=== PATIENT | male | born 1955 | race Caucasian/White ===

== ENCOUNTER 2023-01-26 20:41 | Inpatient (IN) | payer MEDICARE, OTHER ==
[2023-01-26 21:53] LABS: Anisocytosis Slight; Basophils % (A) 0 %; Eosinophils # (A) 0.1 k/uL (0-0.7); Eosinophils % (A) 1 %; HCT 52.3 % (39.0-53.0); HGB 16.8 gm/dL (13.0-17.5); Hypochromasia Moderate; Lymphocytes # (A) 1.8 k/uL (1.0-4.8); Lymphocytes % (A) 21 %; MCH 29.1 pg (25.0-35.0); MCHC 32.1 g/dL (31.0-37.0); MCV 90.6 fL (80.0-100.0); Mean Platelet Volume 7.3; Monocytes # (A) 0.3 k/uL (0-1.0); Monocytes % (A) 4 %; Neutrophils # (A) 5.9 k/uL (1.3-7.7); Neutrophils % (A) 71 %; Platelet Count 215 k/uL (150-450); RBC 5.78 m/uL (4.30-5.90); RDW 16.1 % (11.5-15.5); WBC 8.3 k/uL (3.8-10.6)
[2023-01-26 21:57] LABS: ALT 35 U/L (4-49); AST 37 U/L (17-59); African American GFR (CKD) 87 (>60 ml/min/1.73 sqM); Albumin 3.6 g/dL (3.5-5.0); Alkaline Phosphatase 144 U/L (38-126); Anion Gap 11 mmol/L; Blood Urea Nitrogen 19 mg/dL (9-20); Calcium 8.9 mg/dL (8.4-10.2); Carbon Dioxide 28 mmol/L (22-30); Chloride 101 mmol/L (98-107); Glucose 105 mg/dL (74-99); Non-African American GFR(CKD) 75 (>60 ml/min/1.73 sqM); Sodium 140 mmol/L (137-145)
--- NOTE | 2023-01-26 22:20 | ED ---
SOB HPI - General Chief Complaint: Shortness of Breath Stated Complaint: Leg Swelling, Pain and numbness Time Seen by Provider: 01/26/23 21:58 Source: patient Mode of arrival: wheelchair - History of Present Illness Initial Comments: Patient is a 67-year-old male presenting with chief complaint of shortness of breath and swelling to the bilateral lower extremities. States that this has been ongoing for several weeks. Patient states that he has been feeling increasingly short of breath, shortness of breath is worse with laying flat or exertion. Denies chest pain. Admits to cough. No fevers or chills. No nausea, vomiting, abdominal pain. - Related Data Home Medications Medication Instructions Recorded Confirmed No Known Home Medications 08/08/15 08/08/15 Allergies Allergy/AdvReac Type Severity Reaction Status Date / Time No Known Allergies Allergy Verified 01/26/23 21:01 Review of Systems ROS Statement: Those systems with pertinent positive or pertinent negative responses have been documented in the HPI. ROS Other: All systems not noted in ROS Statement are negative. Past Medical History Past Medical History: COPD, Hypertension, Myocardial Infarction ([place]) History of Any Multi-Drug Resistant Organisms: None Reported Past Surgical History: Appendectomy Past Psychological History: No Psychological Hx Reported Smoking Status: Current every day smoker Past Alcohol Use History: None Reported Past Drug Use History: None Reported General Exam Limitations: no limitations General appearance: alert, in no apparent distress Head exam: Present: atraumatic, normocephalic, normal inspection Eye exam: Present: normal appearance, EOMI. Absent: scleral icterus, periorbital swelling Neck exam: Present: normal inspection, full ROM Respiratory exam: Present: normal lung sounds bilaterally. Absent: respiratory distress, wheezes, rales, rhonchi, stridor Cardiovascular Exam: Present: regular rate, normal rhythm, normal heart sounds. Absent: systolic murmur, diastolic murmur, rubs, gallop, clicks Extremities exam: Present: pedal edema Neurological exam: Present: alert, oriented X3, CN II-XII intact Psychiatric exam: Present: normal affect, normal mood Skin exam: Present: warm, dry, intact, normal color. Absent: rash Course Vital Signs 01/26/23 01/26/23 20:55 23:10 Temperature 97 F L Pulse Rate 100 92 Respiratory 18 18 Rate Blood Pressure 134/94 152/111 O2 Sat by Pulse 95 93 L Oximetry Medical Decision Making - Medical Decision Making Was pt. sent in by a medical professional or institution (, YUE, ART EDUCATION PROFESSOR, urgent care, hospital, or group home...) When possible be specific @ -No Did you speak to anyone other than the patient for history (EMS, parent, family, police, friend...)? What history was obtained from this source @ -No Did you review nursing and triage notes (agree or disagree)? Why? @ -I reviewed and agree with nursing and triage notes Were old charts reviewed (outside hosp., previous admission, EMS record, old EKG, old radiological studies, urgent care reports/EKG's, group home records)? Report findings @ -No old charts were reviewed Differential Diagnosis (chest pain, altered mental status, abdominal pain women, abdominal pain men, vaginal bleeding, weakness, fever, dyspnea, syncope, headache, dizziness, GI bleed, back pain, seizure, CVA, palpatations, mental health, musculoskeletal)? @ -MDM Differential Dyspnea: Coronary syndrome, arrhythmia, tamponade, asthma, COPD, pulmonary embolism, pneumonia, pneumothorax, pulmonary effusion, anaphylaxis, diabetic ketoacidosis, flailed chest, pulmonary contusion, diaphragmatic rupture, anemia, neuromuscular this is not meant to be an all-inclusive list. EKG interpreted by me (3pts min.). @ -As above X-rays interpreted by me (1pt min.). @ -Chest x-ray shows basilar infiltrates with small pleural effusions. CT interpreted by me (1pt min.). @ -None done U/S interpreted by me (1pt. min.). @ -None done What testing was considered but not performed or refused? (CT, X-rays, U/S, labs)? Why? @ -None What meds were considered but not given or refused? Why? @ -None Did you discuss the management of the patient with other professionals (professionals i.e. YUE Muhammad, ART EDUCATION PROFESSOR, lab, RT, psych nurse, rn social services, licensing and registration director, teacher, medical scientific officer, case sealer)? Give summary @ -I spoke with Dr. Pereira who accepted admission Was smoking cessation discussed for >3mins.? @ -No Was critical care preformed (if so, how long)? @ -No Were there social determinants of health that impacted care today? How? (Homelessness, low income, unemployed, alcoholism, drug addiction, transportation, low edu. Level, literacy, decrease access to med. care, intermediate, rehab)? @ -No Was there de-escalation of care discussed even if they declined (Discuss DNR or withdrawal of care, Hospice)? DNR status @ -No What co-morbidities impacted this encounter? (DM, HTN, Smoking, COPD, CAD, Cancer, CVA, ARF, Chemo, Hep., AIDS, mental health diagnosis, sleep apnea, morbid obesity)? @ -COPD, hypertension Was patient admitted / discharged? Hospital course, mention meds given and route, prescriptions, significant lab abnormalities, going to OR and other pertinent info. @ -Admitted. 67-year-old male presenting with chief complaint of progressive dyspnea on lower extremity edema. Lab work shows BNP 14,200 and troponin 0.036. Patient is having no chest pain, troponin elevation likely secondary to CHF exacerbation. Chest x-ray shows small pleural effusions, given the patient's clinical presentation without fever or elevated white count pneumonia is unlikely. He will be treated with Lasix. I spoke with Dr. Pereira who accepted admission of this patient and cardiology is placed on consult. Patient is agreeable with this plan. I discussed this case with my attending Dr. Blackmon Undiagnosed new problem with uncertain prognosis? @ -No Drug Therapy requiring intensive monitoring for toxicity (Heparin, Nitro, Insulin, Cardizem)? @ -No Were any procedures done? @ -No Diagnosis/symptom? @ -New onset CHF Acute, or Chronic, or Acute on Chronic? @ -Acute Uncomplicated (without systemic symptoms) or Complicated (systemic symptoms)? @ -Complicated Side effects of treatment? @ -No Exacerbation, Progression, or Severe Exacerbation? @ -No Poses a threat to life or bodily function? How? (Chest pain, [place], AL, pneumonia, PE, COPD, DKA, ARF, appy, cholecystitis, CVA, Diverticulitis, Homicidal, Suicidal, threat to staff... and all critical care pts) @ -Yes - Lab Data Result diagrams: 01/26/23 21:35 01/26/23 21:35 Lab Results 01/26/23 01/26/23 01/26/23 Range/Units 21:35 21:35 21:35 WBC 8.3 (3.8-10.6) k/uL RBC 5.78 (4.30-5.90) m/uL Hgb 16.8 (13.0-17.5) gm/dL Hct 52.3 (39.0-53.0) % MCV 90.6 (80.0-100.0) fL MCH 29.1 (25.0-35.0) pg MCHC 32.1 (31.0-37.0) g/dL RDW 16.1 H (11.5-15.5) % Plt Count 215 (150-450) k/uL MPV 7.3 Neutrophils % 71 % Lymphocytes % 21 % Monocytes % 4 % Eosinophils % 1 % Basophils % 0 % Neutrophils # 5.9 (1.3-7.7) k/uL Lymphocytes # 1.8 (1.0-4.8) k/uL Monocytes # 0.3 (0-1.0) k/uL Eosinophils # 0.1 (0-0.7) k/uL Basophils # 0.0 (0-0.2) k/uL Hypochromasia Moderate Anisocytosis Slight Sodium 140 (137-145) mmol/L Potassium 5.0 (3.5-5.1) mmol/L Chloride 101 (98-107) mmol/L Carbon Dioxide 28 (22-30) mmol/L Anion Gap 11 mmol/L BUN 19 (9-20) mg/dL Creatinine 1.02 (0.66-1.25) mg/dL Est GFR (CKD-EPI)AfAm 87 (>60 ml/min/1.73 sqM) Est GFR (CKD-EPI)NonAf 75 (>60 ml/min/1.73 sqM) Glucose 105 H (74-99) mg/dL Lactic Ac Sepsis Rflx Plasma Lactic Acid Elia 4.9 H* (0.7-2.0) mmol/L Calcium 8.9 (8.4-10.2) mg/dL Total Bilirubin 1.0 (0.2-1.3) mg/dL AST 37 (17-59) U/L ALT 35 (4-49) U/L Alkaline Phosphatase 144 H (38-126) U/L Troponin I (0.000-0.034) ng/mL NT-Pro-B Natriuret Pep pg/mL Total Protein 7.0 (6.3-8.2) g/dL Albumin 3.6 (3.5-5.0) g/dL 01/26/23 01/26/23 01/26/23 Range/Units 21:35 21:35 22:05 WBC (3.8-10.6) k/uL RBC (4.30-5.90) m/uL Hgb (13.0-17.5) gm/dL Hct (39.0-53.0) % MCV (80.0-100.0) fL MCH (25.0-35.0) pg MCHC (31.0-37.0) g/dL RDW (11.5-15.5) % Plt Count (150-450) k/uL MPV Neutrophils % % Lymphocytes % % Monocytes % % Eosinophils % % Basophils % % Neutrophils # (1.3-7.7) k/uL Lymphocytes # (1.0-4.8) k/uL Monocytes # (0-1.0) k/uL Eosinophils # (0-0.7) k/uL Basophils # (0-0.2) k/uL Hypochromasia Anisocytosis Sodium (137-145) mmol/L Potassium (3.5-5.1) mmol/L Chloride (98-107) mmol/L Carbon Dioxide (22-30) mmol/L Anion Gap mmol/L BUN (9-20) mg/dL Creatinine (0.66-1.25) mg/dL Est GFR (CKD-EPI)AfAm (>60 ml/min/1.73 sqM) Est GFR (CKD-EPI)NonAf (>60 ml/min/1.73 sqM) Glucose (74-99) mg/dL Lactic Ac Sepsis Rflx Y Plasma Lactic Acid Elia (0.7-2.0) mmol/L Calcium (8.4-10.2) mg/dL Total Bilirubin (0.2-1.3) mg/dL AST (17-59) U/L ALT (4-49) U/L Alkaline Phosphatase (38-126) U/L Troponin I 0.036 H* (0.000-0.034) ng/mL NT-Pro-B Natriuret Pep 84847 pg/mL Total Protein (6.3-8.2) g/dL Albumin (3.5-5.0) g/dL - EKG Data -: EKG Interpreted by Me EKG Comments: Sinus tachycardia ventricular rate 100. W[place] interval 146. QRS 89. QT 349. QTC 406. No acute changes when compared to previous EKG. Disposition Clinical Impression: Congestive heart failure Disposition: ADMITTED IP TO THIS HOSP Condition: Fair Time of Disposition: 23:51
[2023-01-26] MEDS ORDERED: NICOTINE 14MG/24HR PATCH TRANSDERM STA (22:21)
--- NOTE | 2023-01-26 22:29 | XR ---
EXAMINATION TYPE: XR chest 2V DATE OF EXAM: 01/26/2023 COMPARISON: None INDICATION: Short of breath TECHNIQUE: Frontal and lateral views of the chest are obtained. FINDINGS: The heart size is normal. The pulmonary vasculature is normal. Small left pleural effusion is present. Minimal right pleural effusion is present. Bibasilar infiltra gregoria are present. Correlate for atelectasis or pneumonia.. There is some flattening of the diaphragms with increased AP diameter. Correlate for COPD. IMPRESSION: 1. Basilar infiltrates with small pleural effusions. Correlate for atelectasis or pneumonia. Follow-u p is recommended.
[2023-01-26] MEDS ORDERED: FUROSEMIDE 10 MG/ML 4 ML VIAL IV STA (23:27)
[2023-01-26] MEDS ORDERED: NALOXONE 0.4 MG/ML 1 ML VIAL IV PRN (23:49)
[2023-01-26] MEDS ORDERED: ACETAMINOPHEN TAB 325 MG TAB PO PRN (23:49)
[2023-01-27] MEDS ORDERED: cloNIDine HCL 0.1 MG TAB PO STA (02:10)
[2023-01-27] MEDS: FUROSEMIDE 10 MG/ML 4 ML VIAL IV SCH ×2 (09:18→21:16)
[2023-01-27] MEDS: carvediloL 6.25 MG TAB PO SCH ×2 (09:19→17:12)
--- NOTE | 2023-01-27 10:23 | P.CRDCN ---
History of Present Illness Consult date: 01/27/23 Consult reason: congestive heart failure History of present illness: History of present illness: This is a 67-year-old male does not follow with a molecular modeler but has past medical history of myocardial infarction 8 years ago and is not on any cardiac medications. Patient states he developed increasing shortness of breath that became progressively worse with weight gain and lower extremity edema going on for the last couple of weeks. He denies having any chest pain, no lightheadedness or dizziness, no loss of consciousness. He is an active smoker. Patient is seen today in the emergency center waiting for a bed on the cardiac stepdown unit. His initial blood pressure was 152/111 EKG sinus rhythm with low voltage Chest x-ray: Basilar infiltrates with small pleural effusions. Correlate for atelectasis or pneumonia. CBC is unremarkable. Electrolytes normal, creatinine 1.02. Blood sugar 105, lactic acid 4.9 and repeat 1.9. Alkaline phosphatase 144 that was liver function tests are normal. Troponin 0.036. ProBNP 14,200. Home cardiac medications: None Review Of Systems: At the time of my evaluation: Constitutional: No fever, no chills. No weakness, fatigue or lethargy. EENT: No headache. No dizziness. Lungs: Reports shortness of breath, cough, no sputum production. No wheezing. Reports dyspnea on exertion Cardiovascular: No chest pain, reports lower extremity edema. No palpitations. No paroxysmal nocturnal dyspnea. No orthopnea. No lightheadedness or dizziness. No syncopal episodes. Abdominal: No abdominal pain. No nausea, vomiting. No diarrhea. Musculoskeletal: No myalgias. No muscle weakness, no frequent falls. Integumentary: No wounds. No rash. No unusual bruising. Neurologic: No aphasia. No facial droop. No change in mentation. Physical examination: Gen: This is a 67-year-old male. He is resting in a year structure appears comfortable and in no acute distress. VS: reviewed blood pressure 158/88, heart rate in the 90s, pulse ox 93% on 3 L, afebrile. HEENT: Head is atraumatic, normocephalic. Pupils equal, round. Sclerae is anicteric. NECK: Supple. No JVD. . LUNGS: Expiratory wheeze. No intercostal retractions. HEART: Regular rate and rhythm. No murmur. ABDOMEN: Soft No tenderness. EXTREMITIES: 3+ bilateral pedal edema. No calf tenderness. NEUROLOGICAL: Patient is awake, alert and oriented x3. Assessment: Acute heart failure most likely diastolic with preserved EF Mildly elevated troponin of unclear significance Uncontrolled hypertension Patient reported history of myocardial infarction Tobacco use and dependence Plan: Start patient on Lasix 40 mg IV every 12 hours, lisinopril 2.5 mg daily, Coreg 6.25 mg twice daily Monitor JACKELYN, daily weights, electrolytes and renal function Obtain repeat troponins 2, lipid panel Start patient on aspirin and atorvastatin Obtain 2-D echocardiogram and Doppler study to assess cardiac structure and function Smoking cessation Further recommendations to follow based upon clinical course Thank you kindly for this consultation. Nurse practitioner note has been reviewed, I agree with documented findings and plan of care. Patient was seen and examined. Past Medical History Past Medical History: COPD, Hypertension, Myocardial Infarction ([place]) History of Any Multi-Drug Resistant Organisms: None Reported Past Surgical History: Appendectomy Past Psychological History: No Psychological Hx Reported Smoking Status: Current every day smoker Past Alcohol Use History: None Reported Past Drug Use History: None Reported Medications and Allergies Home Medications Medication Instructions Recorded Confirmed Type Acetaminophen [Tylenol Extra 1,500 mg PO BID 01/27/23 01/27/23 History Strength] Diurex Max 1 tab PO QID PRN MDD 4 tabs 01/27/23 01/27/23 History EPINEPHrine [Primatene Mist] 2 puff INHALATION RT-TID PRN 01/27/23 01/27/23 History Saw/Vit E/Sod Isela/Lyc/Beta/Pyg 2 tab PO DAILY 01/27/23 01/27/23 History [Prostate Health Caplet] Allergies Allergy/AdvReac Type Severity Reaction Status Date / Time No Known Allergies Allergy Verified 01/27/23 07:19 Physical Exam Vitals: Vital Signs Temp Pulse Resp BP Pulse Ox 01/27/23 07:19 98.4 F 95 20 173/109 93 L 01/27/23 05:00 92 174/104 94 L 01/27/23 04:00 92 20 174/110 95 01/27/23 02:16 96 01/27/23 02:00 92 20 185/109 90 L 01/27/23 00:30 91 20 167/100 94 L 01/26/23 23:10 92 18 152/111 93 L 01/26/23 20:55 97 F L 100 18 134/94 95 Intake and Output 01/26/23 01/27/23 01/27/23 22:59 06:59 14:59 Output Total 2775 Balance -2775 Output: Urine 2775 Other: Weight 81.647 kg Results 01/26/23 21:35 01/26/23 21:35 Cardiac Enzymes 01/26/23 01/26/23 Range/Units 21:35 21:35 AST 37 (17-59) U/L Troponin I 0.036 H* (0.000-0.034) ng/mL CBC 01/26/23 Range/Units 21:35 WBC 8.3 (3.8-10.6) k/uL RBC 5.78 (4.30-5.90) m/uL Hgb 16.8 (13.0-17.5) gm/dL Hct 52.3 (39.0-53.0) % Plt Count 215 (150-450) k/uL Comprehensive Metabolic Panel 01/26/23 Range/Units 21:35 Sodium 140 (137-145) mmol/L Potassium 5.0 (3.5-5.1) mmol/L Chloride 101 (98-107) mmol/L Carbon Dioxide 28 (22-30) mmol/L BUN 19 (9-20) mg/dL Creatinine 1.02 (0.66-1.25) mg/dL Glucose 105 H (74-99) mg/dL Calcium 8.9 (8.4-10.2) mg/dL AST 37 (17-59) U/L ALT 35 (4-49) U/L Alkaline Phosphatase 144 H (38-126) U/L Total Protein 7.0 (6.3-8.2) g/dL Albumin 3.6 (3.5-5.0) g/dL Current Medications Generic Name Dose Route Start Last Admin Trade Name Freq PRN Reason Stop Dose Admin Acetaminophen 650 mg 01/26/23 23:49 Acetaminophen Tab 325 Mg Tab PO Q6HR PRN Mild Pain or Fever > 100.5 Naloxone HCl 0.2 mg 01/26/23 23:49 Naloxone 0.4 Mg/Ml 1 Ml Vial IV Q2M PRN Opioid Reversal Intake and Output 01/26/23 01/27/23 01/27/23 22:59 06:59 14:59 Output Total 2775 Balance -2775 Output: Urine 2775 Other: Weight 81.647 kg 01/26/23 21:35 01/26/23 21:35
[2023-01-27] MEDS ORDERED: IPRATROPIUM-ALBUTEROL 3 ML NEB INHALATION PRN (12:19)
--- NOTE | 2023-01-27 12:22 | CA ---
Transthoracic Echo Report Name: Leighton Knight Age: 67 Gender: M : 1955 Exam Date: 01/27/2023 10:42 Exam Location: [facility] Ht (in): 69 Wt (lb): 180 Ordering Physician: Macey Bradshaw Attending/Referring Phys: [id number], Leeann Dance Instructor Satya Nava Procedure CPT: Indications: LVF Cardiac Hx: Technical Quality: Fair Contrast 1: Total Dose (mL): Contrast 2: Total Dose (mL): MEASUREMENTS (Male / Female) Normal Values 2D ECHO LV Diastolic Diameter PLAX 5.3 cm 4.2 - 5.9 / 3.9 - 5.3 cm LV Systolic Diameter PLAX 4.4 cm IVS Diastolic Thickness 1.1 cm 0.6 - 1.0 / 0.6 - 0.9 cm LVPW Diastolic Thickness 1.0 cm 0.6 - 1.0 / 0.6 - 0.9 cm LV Relative Wall Thickness 0.4 RV Internal Dim ED PLAX 2.9 cm LVOT Diameter 2.3 cm Aortic Root Diameter 3.6 cm LA Systolic Diameter LX 2.4 cm 3.0 - 4.0 / 2.7 - 3.8 cm LV Diastolic Volume MOD BP 100.3 cm??? 67 - 155 / 56 - 104 cm??? LV Systolic Volume MOD BP 70.9 cm??? 22 - 58 / 19 - 49 cm??? LV Ejection Fraction MOD BP 29.3 % >= 55 % LV Diastolic Volume MOD 4C 107.5 cm??? LV Systolic Volume MOD 4C 71.8 cm??? LV Ejection Fraction MOD 4C 33.2 % LV Diastolic Length 4C 7.7 cm LV Systolic Length 4C 7.1 cm LV Diastolic Volume MOD 2C 86.4 cm??? LV Systolic Volume MOD 2C 68.2 cm??? LV Ejection Fraction MOD 2C 21.1 % LV Diastolic Length 2C 7.1 cm LV Systolic Length 2C 6.9 cm LA Volume 58.3 cm??? 18 - 58 / 22 - 52 cm??? DOPPLER AV Peak Velocity 159.4 cm/s AV Peak Gradient 10.2 mmHg AI Peak Velocity 340.6 cm/s AI Peak Gradient 46.4 mmHg AI Pressure Half Time 510.2 ms LVOT Peak Velocity 52.7 cm/s LVOT Peak Gradient 1.1 mmHg AV Area Cont Eq pk 1.4 cm??? MV Peak Velocity 86.1 cm/s MV Peak Gradient 3.0 mmHg MV Mean Velocity 49.0 cm/s MV Mean Gradient 1.1 mmHg MV Velocity Time Integral 24.2 cm MR Peak Velocity 497.6 cm/s MR Peak Gradient 99.0 mmHg Mitral E Point Velocity 88.5 cm/s Mitral A Point Velocity 60.0 cm/s Mitral E to A Ratio 1.5 MV Deceleration Time 142.9 ms TR Peak Velocity 169.9 cm/s TR Peak Gradient 11.5 mmHg Right Ventricular Systolic Press 17.3 mmHg PV Peak Velocity 57.6 cm/s PV Peak Gradient 1.3 mmHg FINDINGS Left Ventricle Normal LV size and wall thickness. Left ventricular ejection fraction is estimated at 30-35 %. Right Ventricle Normal right ventricular size. Right Atrium Normal right atrial size. Left Atrium Normal left atrial size. Mitral Valve Structurally normal mitral valve. Severe MR. Aortic Valve Mild to moderate AV calcification. Mild to moderate AI. Tricuspid Valve Structurally normal tricuspid valve. Trace TR. Pulmonic Valve Grossly normal Pulmonic valve. No pulmonic regurgitation. Pericardium Normal pericardium. Aorta Normal size aortic root and proximal ascending aorta. CONCLUSIONS Severe LV dysfunction ejection fraction 30% with 3+ mitral regurgitation Thickened posterior pericardium Previewed by: Dr. Se Adames MD (Electronically Signed) Final Date: 27 January 2023 12:20
[2023-01-27] MEDS: IPRATROPIUM-ALBUTEROL 3 ML NEB INHALATION SCH ×2 (12:37→22:17)
[2023-01-27] MEDS: methylPREDNISolone SOD SUCCI 125 MG/2 ML VIAL IV SCH ×3 (12:54→23:13)
--- NOTE | 2023-01-27 13:33 | HP ---
HISTORY AND PHYSICAL CHIEF COMPLAINT: Shortness of breath and multiple other complaints. HISTORY OF PRESENT ILLNESS: This is a 67-year-old gentleman with a past medical history of multiple medical problems including COPD, hypertension, was complaining of shortness of breath and weakness. The patient had skin infections also. The patient came to [facility]. The patient's troponin is mildly elevated. There is no history of any chest pain per se. Cardiology evaluation is in progress. The patient was admitted for further evaluation and treatment. There is no history of any fever, rigors, or chills at this time. PAST MEDICAL HISTORY: Reviewed include COPD, hypertension. Rest of the history and rest of the chart are also reviewed. HOME MEDICATIONS: Tylenol. Doses and the rest of medication noted. ALLERGIES: None. FAMILY HISTORY: No history of heart disease or strokes in the family. SOCIAL HISTORY: Continued ongoing smoking. REVIEW OF SYSTEMS: A 14-point review is negative except as mentioned earlier. PHYSICAL EXAMINATION: VITAL SIGNS: Pulse 92, blood pressure 174/104, respirations 20. HEENT: Conjunctivae normal. NECK: No jugular venous distention. CARDIOVASCULAR: S1 and S2. RESPIRATORY: Few scattered rhonchi. No crackles. ABDOMEN: Soft and nontender. LEGS: Minimal edema. SKIN: Evidence of cellulitis in the right elbow as well as both legs also present. NERVOUS SYSTEM: Diffusely weak. JOINTS: No active deforming arthropathy. LABORATORY DATA: Labs are reviewed. IMAGING STUDIES: Chest x-ray reviewed personally. ASSESSMENT: 1. Shortness of breath, possibly chronic obstructive pulmonary disease and congestive heart failure acute exacerbation. 2. Troponin 0.036, rule out acute coronary syndrome. 3. Cellulitis. 4. Chronic obstructive pulmonary disease. 5. Hypertension. 6. Multiple medical issues. 7. Gait dysfunction. RECOMMENDATIONS: This is a 67-year-old gentleman who presented with multiple complex medical issues, we will monitor the patient closely. I would recommend diuretics closely with Cardiology. PT/OT evaluation. Monitor blood pressure closely. Prognosis guarded. Recommend smoking cessation. 2D echo has been ordered. Dr. Johnson will follow tomorrow. Home medications will be continued. MMODL / IJN: [id number] /
[2023-01-27 18:13] LABS: Glucose,Whole Blood 139 mg/dL (70-110)
[2023-01-27 20:11] LABS: Glucose,Whole Blood 119 mg/dL (70-110)
[2023-01-27] MEDS ORDERED: HEPARIN SODIUM,PORCINE/PF 5,000 UNIT/0.5 ML SYRINGE SQ SCH (21:00)
[2023-01-27] MEDS ORDERED: ATORVASTATIN 40 MG TAB PO SCH (21:00)
[2023-01-27 21:52] LABS: ABG Base Excess 6.1 mmol/L; ABG HCO3 31 mmol/L (21-25); ABG Oxygen Saturation 89.2 % (94-97); ABG PCO2 48 mmHg (35-45); ABG PH 7.42 (7.35-7.45); ABG TCO2 32 mmol/L (19-24); Allen Test Performed? Yes
[2023-01-27 21:57] LABS: ABG PO2 59 mmHg (83-108)
[2023-01-28] MEDS ORDERED: IPRATROPIUM-ALBUTEROL 3 ML NEB INHALATION PRN (02:31)
--- NOTE | 2023-01-28 02:40 | P.CNPUL ---
History of Present Illness Consult date: 01/28/23 Requesting physician: Devika Wiggins Reason for consult: COPD Chief complaint: Bilateral lower extremity swelling and exertional shortness of breath History of present illness: I am seeing this patient in new consultation today 01/28/2023 for new onset congestive heart failure and likely an exacerbation of COPD. The patient is a 67-year-old male with past medical history hypertension, remote myocardial infarction, and current ongoing tobacco dependence. He smokes approximately one pack per day. Patient has not been to a primary care provider in over 8 years. He states that he does have high blood pressure, but is not on any antihypertensives. He denies ever being diagnosed with COPD, but states "that he probably has it". He does take an [id number] Primatene inhaler on an as-needed basis. He has been using the inhaler more frequently over the last 2 weeks. The patient presented to the emergency room on January 26 complaining of increased lower extremity swelling and exertional shortness of breath. Denies any chest pain, heart palpitations, syncope, orthopnea. He also denies any fever, chills, myalgias, cough, hemoptysis. Patient is currently sitting up in bed, on 2 L/m nasal cannula, in no acute distress. He is wheezy on auscultation. He has been started on a combination of IV Solu-Medrol and bronchodilators. Chest x-ray on arrival showed small bilateral pleural effusions with likely compressive atelectasis. Pneumonia is felt to be less likely. Echocardiogram is admission shows severe LV dysfunction with ejection fraction of 30% and severe mitral regurgitation. His bilateral lower extremities are extremely swollen. He states that they have improved since admission. There is bilateral areas of erythema, possible cellulitis. The patient was started on IV cefazolin. He was also started on Lasix 40 mg twice a day. CBC and BMP on arrival were unremarkable. Troponins were mildly elevated at 0.036 and 0.053. NT proBNP was elevated at 14,200. Lactic acid level was elevated at 4.9 and is down to 1.9. Apparently, there was concern about the patient's mentation; and an ABG was done last night, showing a pO2 of 59, pCO2 of 48, pH of 7.42. The hypercapnia is likely chronic and is compensated. Patient is fully alert and oriented on my evaluation. Patient appears hemodynamically stable. Review of Systems REVIEW OF SYSTEMS: CONSTITUTIONAL: Denies any recent significant weight loss or weight gain. EYES: Denies change in vision. EARS, NOSE, MOUTH, THROAT: Denies headaches, denies sore throat. CARDIOVASCULAR: Denies chest pain, palpitations or syncopal episodes. RESPIRATORY: Denies cough, congestion or hemoptysis. Admits exertional shortness of breath GASTROINTESTINAL: Denies change in appetite, abdominal pain, nausea and vomiting, or diarrhea GENITOURINARY: Denies hematuria, denies infections. MUSKULOSKELETAL: Denies pain. admits bilateral lower extremity edema INTEGUMENTARY: Denies rash, denies eczema. Admits bilateral erythema of the lower extremities NEUROLOGICAL: Denies recent memory loss, no recent seizure activity. PSYCHIATRIC: Denies anxiety, denies depression. HEMATOLOGIC/LYMPHATIC: Denies anemia, denies enlarged lymph node Past Medical History Past Medical History: COPD, Hypertension, Myocardial Infarction (DC) Last Myocardial Infarction Date:: eight years ago History of Any Multi-Drug Resistant Organisms: None Reported Past Surgical History: Appendectomy Past Anesthesia/Blood Transfusion Reactions: No Reported Reaction Past Psychological History: No Psychological Hx Reported Smoking Status: Current every day smoker Past Alcohol Use History: None Reported Past Drug Use History: None Reported Medications and Allergies Home Medications Medication Instructions Recorded Confirmed Type Acetaminophen [Tylenol Extra 1,500 mg PO BID 01/27/23 01/27/23 History Strength] Diurex Max 1 tab PO QID PRN MDD 4 tabs 01/27/23 01/27/23 History EPINEPHrine [Primatene Mist] 2 puff INHALATION RT-TID PRN 01/27/23 01/27/23 History Saw/Vit E/Sod Isela/Lyc/Beta/Pyg 2 tab PO DAILY 01/27/23 01/27/23 History [Prostate Health Caplet] Allergies Allergy/AdvReac Type Severity Reaction Status Date / Time No Known Allergies Allergy Verified 01/27/23 07:19 Physical Exam Vitals: Vital Signs Temp Pulse Pulse Resp BP BP Pulse Ox 01/27/23 23:10 77 18 149/83 95 01/27/23 22:28 79 01/27/23 22:17 76 16 01/27/23 20:00 84 20 146/89 96 01/27/23 18:03 94 18 01/27/23 18:02 97.9 F 94 18 124/90 95 01/27/23 17:17 93 18 162/98 98 01/27/23 12:43 80 18 01/27/23 12:40 98 01/27/23 12:37 77 18 01/27/23 09:10 94 18 158/88 96 01/27/23 07:19 98.4 F 95 20 173/109 93 L 01/27/23 05:00 92 174/104 94 L 01/27/23 04:00 92 20 174/110 95 01/27/23 02:16 96 01/27/23 02:00 92 20 185/109 90 L Intake and Output 01/27/23 01/27/23 01/28/23 14:59 22:59 06:59 Other: Voiding Method Urinal Weight 81.647 kg GENERAL EXAM: Alert and disheveled, 67-year-old male patient, he is comfortable in no apparent distress. HEAD: Normocephalic and atraumatic EYES: Normal reaction of pupils, equal size. NOSE: Clear with pink turbinates. THROAT: No erythema or exudates. NECK: No masses, no JVD. CHEST: No chest wall deformity. LUNGS: Equal air entry with mild expiratory wheezes heard throughout. On 2 L/m nasal cannula. No conversational dyspnea or accessory muscle use.. CVS: S1 and S2 normal with no audible murmur, regular rhythm. No extra heart sounds. ABDOMEN: No hepatosplenomegaly, active bowel sounds, no guarding or rigidity. SPINE: No scoliosis or deformity SKIN: No rashes. Bilateral lower extremity defined erythema. CENTRAL NERVOUS SYSTEM: No focal deficits, tone is normal in all 4 extremities. EXTREMITIES: There is 3+ bilateral lower extremity pitting edema. clubbing, or cyanosis. Fingernails are yellowed and dirty. Peripheral pulses are intact. Results - Laboratory Findings CBC and BMP: 01/26/23 21:35 01/26/23 21:35 ABG ABG pH 7.42 (7.35-7.45) 01/27/23 21:45 ABG pCO2 48 mmHg (35-45) H 01/27/23 21:45 ABG pO2 59 mmHg (83-108) L* 01/27/23 21:45 ABG O2 Saturation 89.2 % (94-97) L 01/27/23 21:45 Abnormal lab findings: Abnormal Labs 01/26/23 01/26/23 01/26/23 21:35 21:35 21:35 RDW 16.1 H ABG pCO2 ABG pO2 ABG HCO3 ABG Total CO2 ABG O2 Saturation Glucose 105 H POC Glucose (mg/dL) Plasma Lactic Acid Elia 4.9 H* Alkaline Phosphatase 144 H Troponin I 01/26/23 01/27/23 01/27/23 21:35 11:45 15:05 RDW ABG pCO2 ABG pO2 ABG HCO3 ABG Total CO2 ABG O2 Saturation Glucose POC Glucose (mg/dL) Plasma Lactic Acid Elia Alkaline Phosphatase Troponin I 0.036 H* 0.042 H* 0.053 H* 01/27/23 01/27/23 01/27/23 18:12 20:09 21:45 RDW ABG pCO2 48 H ABG pO2 59 L* ABG HCO3 31 H ABG Total CO2 32 H ABG O2 Saturation 89.2 L Glucose POC Glucose (mg/dL) 139 H 119 H Plasma Lactic Acid Elia Alkaline Phosphatase Troponin I - Diagnostic Findings Chest x-ray: image reviewed Assessment and Plan Assessment: Acute hypoxemic respiratory failure, currently on 2 L/m nasal cannula. Possibly multifactorial secondary to exacerbation of systolic congestive heart failure a nd suspected mild COPD exacerbation. Chest x-ray on arrival showed small bilateral pleural effusions with likely compressive atelectasis. Pneumonia is felt to be less likely. Echocardiogram is admission shows severe LV dysfunction with ejection fraction of 30% and severe mitral regurgitation. NT proBNP was elevated at 14,200. Likely chronic and compensated hypercapnic respiratory failure Elevated troponins, possibly related supplies/demand mismatch Suspected bilateral lower extremity cellulitis, initiated on cefazolin Lactic acidemia, improved Benign essential hypertension Reported history of myocardial infarction Chronic ongoing tobacco dependence Plan: Patient's medications, labs, chest x-ray reviewed Continue supplemental oxygen to maintain oxygen saturation 92% or greater Start patient on combination of bronchodilators, Symbicort inhaler, IV Solu- Medrol Clinical suspicion for pulmonary infection is low, will check procalcitonin level Continue Lasix 40 mg twice a day Cardiology is following Continue cefazolin for suspected cellulitis Smoking cessation counseling performed Nicotine replacement offered Once ready for discharge, he would benefit from a full PFT in the office. We will continue to follow I have personally seen and examined the patient, performed the documentation and the assessment and plan as written. Number of minutes spent on the visit:20 Time with Patient: Greater than 30
[2023-01-28 03:15] LABS: Anisocytosis Slight; Basophils % (A) 0 %; Eosinophils % (A) 0 %; HCT 50.5 % (39.0-53.0); HGB 15.8 gm/dL (13.0-17.5); Hypochromasia Slight; Lymphocytes # (A) 0.9 k/uL (1.0-4.8); Lymphocytes % (A) 12 %; MCH 27.9 pg (25.0-35.0); MCHC 31.2 g/dL (31.0-37.0); MCV 89.2 fL (80.0-100.0); Mean Platelet Volume 7.4; Monocytes # (A) 0.2 k/uL (0-1.0); Monocytes % (A) 3 %; Neutrophils # (A) 6.1 k/uL (1.3-7.7); Neutrophils % (A) 85 %; Platelet Count 204 k/uL (150-450); RBC 5.66 m/uL (4.30-5.90); RDW 16.2 % (11.5-15.5); WBC 7.2 k/uL (3.8-10.6)
[2023-01-28 03:30] LABS: African American GFR (CKD) 79 (>60 ml/min/1.73 sqM); Anion Gap 6 mmol/L; Blood Urea Nitrogen 23 mg/dL (9-20); Calcium 8.2 mg/dL (8.4-10.2); Carbon Dioxide 29 mmol/L (22-30); Chloride 101 mmol/L (98-107); Glucose 125 mg/dL (74-99); Non-African American GFR(CKD) 69 (>60 ml/min/1.73 sqM); Sodium 136 mmol/L (137-145)
[2023-01-28] MEDS: methylPREDNISolone SOD SUCCI 125 MG/2 ML VIAL IV SCH ×3 (05:22→17:16)
[2023-01-28] MEDS: NICOTINE 21MG/24HR PATCH TRANSDERM SCH ×2 (05:22→09:45)
[2023-01-28 06:14] LABS: Glucose,Whole Blood 132 mg/dL (70-110)
[2023-01-28] MEDS: carvediloL 6.25 MG TAB PO SCH ×2 (06:45→17:16)
[2023-01-28] MEDS: PANTOPRAZOLE 40 MG TABLET PO SCH (06:45)
[2023-01-28] MEDS ORDERED: HEPARIN SODIUM 1,000 UN/ML (10ML VL) IV ONE (07:05)
[2023-01-28] MEDS ORDERED: HEPARIN SODIUM 1,000 UN/ML (10ML VL) IV PRN (07:05)
--- NOTE | 2023-01-28 07:08 | P.PN ---
Subjective Progress Note Date: 01/28/23 Principal diagnosis: Acute coronary syndrome The patient is a 67-year-old gentleman with history of CAD as well as history of smoking and hypertension and dyslipidemia who was admitted to the hospital with heart failure. He underwent further workup including troponin came in to be abnormal and also an echo showed cardiomyopathy was EF around 30-35%. He was also in heart failure. January 282022 The patient was seen and evaluated this morning. He is symptomatic and continu es to have shortness of breath and he seems to be congested as well. He is on Lasix IV. Beside that he is on aspirin and beta chidi and statin. I'm going to add heparin in the light of elevated troponin. I informed the patient that he needs to undergo a heart catheterization to rule out severe CAD in the next 24 hours. Examination is remarkable for bilateral rhonchi and expiratory wheezing. Assessment Heart failure exacerbation secondary to heart failure with reduced ejection fraction Acute hypoxic respiratory failure secondary to COPD and CHF Severe cardiomyopathy Evidence of myocardial injury History of smoking Multiple comorbid conditions Plan Continue the current medical regimen Add heparin to the current medical regimen Consider proceeding with coronary angiogram Objective - Vital Signs Vital signs: Vital Signs Temp 97.9 F 01/27/23 18:02 Pulse 87 01/28/23 04:00 Resp 18 01/28/23 04:00 BP 145/85 01/28/23 04:00 Pulse Ox 94 L 01/28/23 04:00 FiO2 Intake & Output 01/27/23 01/28/23 01/28/23 18:59 06:59 18:59 Output Total 1000 Balance -1000 Weight 81.647 kg 74 kg Output: Urine 1000 Other: Voiding Method Urinal Urinal - Labs CBC & Chem 7: 01/28/23 02:51 01/28/23 02:51 Labs: Abnormal Lab Results - Last 24 Hours (Table) 01/27/23 01/27/23 01/27/23 Range/Units 11:45 15:05 18:12 RDW (11.5-15.5) % Lymphocytes # (1.0-4.8) k/uL ABG pCO2 (35-45) mmHg ABG pO2 (83-108) mmHg ABG HCO3 (21-25) mmol/L ABG Total CO2 (19-24) mmol/L ABG O2 Saturation (94-97) % Sodium (137-145) mmol/L BUN (9-20) mg/dL Glucose (74-99) mg/dL POC Glucose (mg/dL) 139 H (70-110) mg/dL Calcium (8.4-10.2) mg/dL Troponin I 0.042 H* 0.053 H* (0.000-0.034) ng/mL 01/27/23 01/27/23 01/28/23 Range/Units 20:09 21:45 02:51 RDW (11.5-15.5) % Lymphocytes # (1.0-4.8) k/uL ABG pCO2 48 H (35-45) mmHg ABG pO2 59 L* (83-108) mmHg ABG HCO3 31 H (21-25) mmol/L ABG Total CO2 32 H (19-24) mmol/L ABG O2 Saturation 89.2 L (94-97) % Sodium 136 L (137-145) mmol/L BUN 23 H (9-20) mg/dL Glucose 125 H (74-99) mg/dL POC Glucose (mg/dL) 119 H (70-110) mg/dL Calcium 8.2 L (8.4-10.2) mg/dL Troponin I (0.000-0.034) ng/mL 01/28/23 01/28/23 Range/Units 02:51 06:09 RDW 16.2 H (11.5-15.5) % Lymphocytes # 0.9 L (1.0-4.8) k/uL ABG pCO2 (35-45) mmHg ABG pO2 (83-108) mmHg ABG HCO3 (21-25) mmol/L ABG Total CO2 (19-24) mmol/L ABG O2 Saturation (94-97) % Sodium (137-145) mmol/L BUN (9-20) mg/dL Glucose (74-99) mg/dL POC Glucose (mg/dL) 132 H (70-110) mg/dL Calcium (8.4-10.2) mg/dL Troponin I (0.000-0.034) ng/mL
[2023-01-28 08:15] LABS: Anisocytosis Slight; Basophils % (A) 0 %; Eosinophils % (A) 0 %; HCT 50.8 % (39.0-53.0); HGB 15.5 gm/dL (13.0-17.5); Hypochromasia Slight; Lymphocytes # (A) 0.8 k/uL (1.0-4.8); Lymphocytes % (A) 9 %; MCH 27.3 pg (25.0-35.0); MCHC 30.5 g/dL (31.0-37.0); MCV 89.6 fL (80.0-100.0); Mean Platelet Volume 7.5; Monocytes # (A) 0.2 k/uL (0-1.0); Monocytes % (A) 2 %; Neutrophils % (A) 88 %; Platelet Count 200 k/uL (150-450); RBC 5.68 m/uL (4.30-5.90); RDW 16.2 % (11.5-15.5); WBC 9.1 k/uL (3.8-10.6)
[2023-01-28 08:35] LABS: INR 1.2 (<1.2); Partial Thromboplastin Time 24.7 sec (22.0-30.0); Prothrombin Time 12.1 sec (9.0-12.0)
[2023-01-28] MEDS: HEPARIN SOD,PORK IN 0.45% NACL 25,000 UNIT in 0.45% NACL 1 250ML.BAG IV SCH (08:55)
[2023-01-28] MEDS: FUROSEMIDE 10 MG/ML 4 ML VIAL IV SCH ×2 (08:56→20:00)
[2023-01-28] MEDS: ASPIRIN 81 MG PO SCH (08:56)
[2023-01-28 09:33] LABS: Chol/HDL Ratio 2.98 Ratio; LDL Cholesterol,Calculated 65.7 mg/dL (0.0-131.0); VLDL Calculation 17.42 mg/dL (5.00-40.00)
[2023-01-28] MEDS: IPRATROPIUM-ALBUTEROL 3 ML NEB INHALATION SCH ×4 (09:55→21:28)
[2023-01-28] MEDS: SYMBICORT 160-4.5 MCG INHALER INHALATION SCH ×2 (09:55→21:28)
[2023-01-28 12:05] LABS: Glucose,Whole Blood 119 mg/dL (70-110)
[2023-01-28] MEDS ORDERED: NITROGLYCERIN SL TABS 0.4 MG TAB SUBLINGUAL PRN (16:38)
[2023-01-28] MEDS ORDERED: ALPRAZolam 0.5 MG TAB PO PRN (16:38)
[2023-01-28 17:27] LABS: Glucose,Whole Blood 143 mg/dL (70-110)
[2023-01-28 19:48] LABS: Glucose,Whole Blood 228 mg/dL (70-110)
[2023-01-28] MEDS: ATORVASTATIN 80 MG TAB PO SCH (20:00)
--- NOTE | 2023-01-28 22:21 | HP ---
HISTORY AND PHYSICAL CHIEF COMPLAINT: Difficulty breathing. HISTORY OF PRESENT ILLNESS: This is a 67-year-old male who presented to the emergency room with shortness of breath and was diagnosed as having CHF. He has been a heavy smoker. He has not been seen in the office since 2012. At that time, he was only on vitamin D and Lipitor. REVIEW OF SYSTEMS: He denies chest pain, hemoptysis, sputum production, orthopnea, PND, abdominal pain, nausea, vomiting, hematemesis, melena, hematochezia, jaundice, hepatitis, cirrhosis, hematuria, frequency, urgency, incontinence, nocturia, diabetes, etc. Past medical history, family history and personal and social histories are otherwise unremarkable or noncontributory. He is not allergic to any medication and not taking any. He continues to smoke. He has had an appendectomy. PHYSICAL EXAMINATION: VITAL SIGNS: Blood pressure is 162/94 with a pulse 78 and regular, respirations of 38, and he is afebrile. GENERAL: He appeared to be slender and short of breath. SKIN: Dry. HEAD, EARS, EYES, NOSE, MOUTH AND THROAT: Normal. NECK: Neck veins are not distended. Thyroid is not enlarged. CHEST: Demonstrates poor breath sounds with scattered wheezing and rales with an increased AP diameter. CARDIAC: Demonstrates sinus rhythm. ABDOMEN: Flat, soft, nontender. EXTREMITIES: Normal. NEUROLOGIC: He is intact. DIAGNOSES: He is admitted to the hospital with diagnoses, 1. Shortness of breath. 2. Chronic obstructive pulmonary disease. 3. Possible congestive heart failure. PLAN: 1. Bedrest. 2. IV fluids. 3. Serial EKGs and enzymes. 4. Echocardiogram. 5. BNP. MMODL / IJN: [id number] /
--- NOTE | 2023-01-28 22:30 | PN ---
PROGRESS NOTE DATE OF SERVICE: 01/28/2023 CHIEF COMPLAINT: Difficulty breathing. Tentative diagnosis: Heart failure. HISTORY OF PRESENT ILLNESS: This is a gentleman who is doing fairly well and stable. He is still slightly dyspneic. He denies any pain. PHYSICAL EXAMINATION: CHEST: Demonstrates decreased breath sounds with a leathery component. CARDIAC: Normal. ABDOMEN: Soft and nontender. IMPRESSION: 1. Congestive heart failure. 2. Chronic obstructive pulmonary disease. PLAN: Continue workup. MMODL / IJN: [id number] /
[2023-01-29] MEDS: SODIUM CHLORIDE 0.9% 1,000 ML in EMPTY BAG 1 BAG IV SCH ×2 (00:16→21:46)
[2023-01-29] MEDS: methylPREDNISolone SOD SUCCI 125 MG/2 ML VIAL IV SCH ×4 (00:16→17:27)
[2023-01-29] MEDS: PANTOPRAZOLE 40 MG TABLET PO SCH (05:34)
[2023-01-29] MEDS: carvediloL 6.25 MG TAB PO SCH ×2 (05:34→17:27)
[2023-01-29] MEDS: NICOTINE 21MG/24HR PATCH TRANSDERM SCH (05:34)
[2023-01-29] MEDS: ASPIRIN 81 MG PO SCH (05:34)
[2023-01-29] MEDS: HEPARIN SOD,PORK IN 0.45% NACL 25,000 UNIT in 0.45% NACL 1 250ML.BAG IV SCH (05:39)
[2023-01-29 05:59] LABS: Glucose,Whole Blood 120 mg/dL (70-110)
[2023-01-29] MEDS ORDERED: HEPARIN SODIUM,PORCINE 10,000 UNIT in SODIUM CHLORIDE 0.9% 1,000 ML IRRIGATION PRN (07:00)
[2023-01-29] MEDS ORDERED: HEPARIN SODIUM,PORCINE 2,500 UNIT in SODIUM CHLORIDE 0.9% 250 ML IRRIGATION PRN (07:00)
--- NOTE | 2023-01-29 07:25 | P.PN ---
Subjective Progress Note Date: 01/29/23 Principal diagnosis: Acute coronary syndrome The patient is a 67-year-old gentleman with history of CAD as well as history of smoking and hypertension and dyslipidemia who was admitted to the hospital with heart failure. He underwent further workup including troponin came in to be abnormal and also an echo showed cardiomyopathy was EF around 30-35%. He was also in heart failure. January 282022 The patient was seen and evaluated this morning. He is symptomatic and continu es to have shortness of breath and he seems to be congested as well. He is on Lasix IV. Beside that he is on aspirin and beta chidi and statin. I'm going to add heparin in the light of elevated troponin. I informed the patient that he needs to undergo a heart catheterization to rule out severe CAD in the next 24 hours. January 292022 The patient was seen and evaluated this morning. He continues to have shortness of breath and he continues to be hypoxic on oxygen. He seems to be still in fluid overload as well. He cannot lay flat without being short of breath. He is on Lasix IV which I would suggest to continue. The echo showed severe cardiomyopathy as well as severe mitral regurgitation. The patient to undergo transesophageal echocardiogram and heart catheterization once his heart failure symptoms improved. Meanwhile continue the current medical regimen and continue heparin for additional 24 hours for a total of 48 hours. Examination is remarkable for bilateral rhonchi and expiratory wheezing along with mild bilateral lower extremity edema Assessment Heart failure exacerbation secondary to heart failure with reduced ejection fraction Acute hypoxic respiratory failure secondary to COPD and CHF Severe cardiomyopathy Severe mitral regurgitation Evidence of myocardial injury History of smoking Multiple comorbid conditions Plan Continue the current medical regimen Add heparin to the current medical regimen Consider transesophageal echocardiogram and heart catheterization Objective - Vital Signs Vital signs: Vital Signs Temp 97.5 F L 01/28/23 11:50 Pulse 87 01/29/23 04:00 Resp 18 01/29/23 04:00 BP 159/83 01/29/23 04:00 Pulse Ox 92 L 01/29/23 06:30 FiO2 Intake & Output 01/28/23 01/29/23 01/29/23 18:59 06:59 18:59 Intake Total 544.38 180 Output Total 350 1375 Balance 194.38 -1195 Weight 73.5 kg Intake: Intake, IV Titration 64.38 Amount Heparin Sod,Pork in 0.45% 64.38 NaCl 25,000 unit In 0.45 % NaCl 1 250ml.bag @ 12 UNITS/KG/HR 8.88 mls/hr IV .Q24H [facility] Rx#: [id number] Oral 480 180 Output: Urine 350 1375 Other: Voiding Method Urinal Urinal # Voids 1 - Labs CBC & Chem 7: 01/28/23 07:31 01/28/23 02:51 Labs: Abnormal Lab Results - Last 24 Hours (Table) 01/28/23 01/28/23 01/28/23 Range/Units 07:31 07:31 12:03 MCHC 30.5 L (31.0-37.0) g/dL RDW 16.2 H (11.5-15.5) % Neutrophils # 8.0 H (1.3-7.7) k/uL Lymphocytes # 0.8 L (1.0-4.8) k/uL PT 12.1 H (9.0-12.0) sec INR 1.2 H (<1.2) APTT (22.0-30.0) sec POC Glucose (mg/dL) 119 H (70-110) mg/dL 01/28/23 01/28/23 01/28/23 Range/Units 15:09 17:25 19:47 MCHC (31.0-37.0) g/dL RDW (11.5-15.5) % Neutrophils # (1.3-7.7) k/uL Lymphocytes # (1.0-4.8) k/uL PT (9.0-12.0) sec INR (<1.2) APTT 52.5 H (22.0-30.0) sec POC Glucose (mg/dL) 143 H 228 H (70-110) mg/dL 01/29/23 Range/Units 05:58 MCHC (31.0-37.0) g/dL RDW (11.5-15.5) % Neutrophils # (1.3-7.7) k/uL Lymphocytes # (1.0-4.8) k/uL PT (9.0-12.0) sec INR (<1.2) APTT (22.0-30.0) sec POC Glucose (mg/dL) 120 H (70-110) mg/dL
[2023-01-29 07:34] LABS: Anisocytosis Slight; Basophils % (A) 0 %; Eosinophils % (A) 0 %; HCT 45.9 % (39.0-53.0); HGB 14.5 gm/dL (13.0-17.5); Hypochromasia Slight; Lymphocytes # (A) 0.9 k/uL (1.0-4.8); Lymphocytes % (A) 7 %; MCH 28.4 pg (25.0-35.0); MCHC 31.7 g/dL (31.0-37.0); MCV 89.6 fL (80.0-100.0); Mean Platelet Volume 7.1; Monocytes # (A) 0.4 k/uL (0-1.0); Monocytes % (A) 3 %; Neutrophils # (A) 11.9 k/uL (1.3-7.7); Neutrophils % (A) 90 %; Platelet Count 196 k/uL (150-450); RBC 5.12 m/uL (4.30-5.90); RDW 16.1 % (11.5-15.5); WBC 13.3 k/uL (3.8-10.6)
[2023-01-29 07:49] LABS: INR 1.1 (<1.2); Partial Thromboplastin Time 43.8 sec (22.0-30.0); Prothrombin Time 11.3 sec (9.0-12.0)
[2023-01-29] MEDS: SYMBICORT 160-4.5 MCG INHALER INHALATION SCH ×2 (08:34→21:48)
[2023-01-29] MEDS: IPRATROPIUM-ALBUTEROL 3 ML NEB INHALATION SCH ×4 (08:34→21:48)
[2023-01-29] MEDS: FUROSEMIDE 10 MG/ML 4 ML VIAL IV SCH ×2 (09:17→21:43)
[2023-01-29 11:54] LABS: Glucose,Whole Blood 214 mg/dL (70-110)
[2023-01-29] MEDS: DAPAGLIFLOZIN PROPANEDIOL 10 MG TABLET PO SCH (13:49)
--- NOTE | 2023-01-29 15:00 | P.PN ---
Subjective Progress Note Date: 01/29/23 I am seeing this patient in new consultation today 01/28/2023 for new onset congestive heart failure and likely an exacerbation of COPD. The patient is a 67-year-old male with past medical history hypertension, remote myocardial infarction, and current ongoing tobacco dependence. He smokes approximately one pack per day. Patient has not been to a primary care provider in over 8 years. He states that he does have high blood pressure, but is not on any antihypertensives. He denies ever being diagnosed with COPD, but states "that he probably has it". He does take an [id number] Primatene inhaler on an as-needed basis. He has been using the inhaler more frequently over the last 2 weeks. The patient presented to the emergency room on January 26 complaining of increased lower extremity swelling and exertional shortness of breath. Denies any chest pain, heart palpitations, syncope, orthopnea. He also denies any fever, chills, myalgias, cough, hemoptysis. Patient is currently sitting up in bed, on 2 L/m nasal cannula, in no acute distress. He is wheezy on auscultation. He has been started on a combination of IV Solu-Medrol and bronchodilators. Chest x-ray on arrival showed small bilateral pleural effusions with likely compressive atelectasis. Pneumonia is felt to be less likely. Echocardiogram is admission shows severe LV dysfunction with ejection fraction of 30% and severe mitral regurgitation. His bilateral lower extremities are extremely swollen. He states that they have improved since admission. There is bilateral areas of erythema, possible cellulitis. The mirza ent was started on IV cefazolin. He was also started on Lasix 40 mg twice a day. CBC and BMP on arrival were unremarkable. Troponins were mildly elevated at 0.036 and 0.053. NT proBNP was elevated at 14,200. Lactic acid level was elevated at 4.9 and is down to 1.9. Apparently, there was concern about the patient's mentation; and an ABG was done last night, showing a pO2 of 59, pCO2 of 48, pH of 7.42. The hypercapnia is likely chronic and is compensated. Patient is fully alert and oriented on my evaluation. Patient appears hemodynamically stable. The patient is seen today 01/29/2023 in follow-up on the selective care unit. He is currently resting comfortably in bed. Awake and alert in no acute distress. He is maintaining O2 saturations in the 90s on 3 L/m per nasal cannula. He is currently on a heparin drip. Plan for cardiac catheterization once stabilized. White count 13.3. Hemoglobin 14.5. Platelets 196. INR 1.1. Blood glucose 214. He is currently on DuoNeb inhalations, Symbicort, IV Solu- Medrol. NicoDerm patch in place. Objective - Vital Signs Vital signs: Vital Signs Temp 98 F 01/29/23 12:00 Pulse 78 01/29/23 12:25 Resp 18 01/29/23 12:00 BP 138/76 01/29/23 12:00 Pulse Ox 97 01/29/23 12:00 FiO2 Intake & Output 01/28/23 01/29/23 01/29/23 18:59 06:59 18:59 Intake Total 544.38 180 Output Total 350 1375 Balance 194.38 -1195 Weight 73.5 kg Intake: Intake, IV Titration 64.38 Amount Heparin Sod,Pork in 0.45% 64.38 NaCl 25,000 unit In 0.45 % NaCl 1 250ml.bag @ 12 UNITS/KG/HR 8.88 mls/hr IV .Q24H [facility] Rx#: [id number] Oral 480 180 Output: Urine 350 1375 Other: Voiding Method Urinal Urinal # Voids 1 - Exam GENERAL EXAM: Alert, pleasant 67-year-old male, comfortable in no apparent distress. HEAD: Normocephalic and atraumatic EYES: Normal reaction of pupils, equal size. NOSE: Clear with pink turbinates. THROAT: No erythema or exudates. NECK: No masses, no JVD. CHEST: No chest wall deformity. LUNGS: Equal air entry with mild expiratory wheezes heard throughout. On 3 L/m nasal cannula. CVS: S1 and S2 normal with no audible murmur, regular rhythm. No extra heart sounds. ABDOMEN: No hepatosplenomegaly, active bowel sounds, no guarding or rigidity. SPINE: No scoliosis or deformity SKIN: No rashes. Bilateral lower extremity defined erythema. CENTRAL NERVOUS SYSTEM: No focal deficits, tone is normal in all 4 extremities. EXTREMITIES: There is 3+ bilateral lower extremity pitting edema. clubbing, or cyanosis. Fingernails are yellowed and dirty. Peripheral pulses are intact. - Labs CBC & Chem 7: 01/29/23 06:49 01/28/23 02:51 Labs: Abnormal Lab Results - Last 24 Hours (Table) 01/28/23 01/28/23 01/28/23 Range/Units 15:09 17:25 19:47 WBC (3.8-10.6) k/uL RDW (11.5-15.5) % Neutrophils # (1.3-7.7) k/uL Lymphocytes # (1.0-4.8) k/uL APTT 52.5 H (22.0-30.0) sec POC Glucose (mg/dL) 143 H 228 H (70-110) mg/dL 01/29/23 01/29/23 01/29/23 Range/Units 05:58 06:49 06:49 WBC 13.3 H (3.8-10.6) k/uL RDW 16.1 H (11.5-15.5) % Neutrophils # 11.9 H (1.3-7.7) k/uL Lymphocytes # 0.9 L (1.0-4.8) k/uL APTT 43.8 H (22.0-30.0) sec POC Glucose (mg/dL) 120 H (70-110) mg/dL 01/29/23 Range/Units 11:52 WBC (3.8-10.6) k/uL RDW (11.5-15.5) % Neutrophils # (1.3-7.7) k/uL Lymphocytes # (1.0-4.8) k/uL APTT (22.0-30.0) sec POC Glucose (mg/dL) 214 H (70-110) mg/dL Assessment and Plan Assessment: Acute hypoxemic respiratory failure, currently on 3 L/m nasal cannula. Possibly multifactorial secondary to exacerbation of systolic congestive heart failure and suspected mild COPD exacerbation. Chest x-ray on arrival showed small bilateral pleural effusions with likely compressive atelectasis. Pneumonia is felt to be less likely. Echocardiogram is admission shows severe LV dysfunction with ejection fraction of 30% and severe mitral regurgitation. NT proBNP was elevated at 14,200. Likely chronic and compensated hypercapnic respiratory failure Elevated troponins, possibly related supplies/demand mismatch Suspected bilateral lower extremity cellulitis, initiated on cefazolin Lactic acidemia, improved Benign essential hypertension Reported history of myocardial infarction Chronic ongoing tobacco dependence Lang: The patient was seen and evaluated Labs and medications reviewed Continue the current treatment plan Titrate down the FiO2 as tolerated Follow-up chest x-ray in a.m. Plan is for cardiac catheterization once his pulmonary status improves We will continue to follow I have personally seen and examined the patient, performed the documentation and the assessment and plan as written. Number of minutes spent on the visit: 10.
[2023-01-29 16:22] LABS: Glucose,Whole Blood 171 mg/dL (70-110)
[2023-01-29 20:25] LABS: Glucose,Whole Blood 170 mg/dL (70-110)
[2023-01-29] MEDS: ACETAMINOPHEN TAB 500 MG TAB PO SCH (21:41)
[2023-01-29] MEDS: ATORVASTATIN 80 MG TAB PO SCH (21:41)
[2023-01-30] MEDS: methylPREDNISolone SOD SUCCI 125 MG/2 ML VIAL IV SCH ×3 (00:32→12:09)
[2023-01-30 06:11] LABS: Glucose,Whole Blood 181 mg/dL (70-110)
[2023-01-30] MEDS: carvediloL 6.25 MG TAB PO SCH ×2 (06:16→16:58)
[2023-01-30] MEDS: PANTOPRAZOLE 40 MG TABLET PO SCH (06:16)
[2023-01-30] MEDS: HEPARIN SOD,PORK IN 0.45% NACL 25,000 UNIT in 0.45% NACL 1 250ML.BAG IV SCH (06:18)
[2023-01-30] MEDS: INSULIN ASPART (NovoLOG) 100 UNIT/ML VIAL SQ SCH ×4 (06:42→20:00)
--- NOTE | 2023-01-30 07:15 | XR ---
EXAMINATION TYPE: XR chest 1V portable DATE OF EXAM: 01/30/2023 6:24 AM COMPARISON: Chest radiographs from 01/26/2023 TECHNIQUE: XR chest 1V portable Portable AP radiograph of the chest. CLINICAL INDICATION:Male, 67 years old with history of CHF; FINDINGS: Lungs/Pleura: Blunting of both costophrenic angles with associated atelectasis. Senescent parenchymal change. Hyperinflation. Pulmonary vascularity: Mild pulmonary vascular congestion. Heart/mediastinum: Cardiomediastinal silhouette is enlarged and stable. Musculoskeletal: No acute osseous pathology. IMPRESSION: Background COPD changes with cardiomegaly, pulmonary vascular congestion, and small bilateral pleural effusions with associated atelectasis. Correlate for CHF exacerbation. Overall similar appearance to prior exam.
--- NOTE | 2023-01-30 07:52 | P.PN ---
Subjective Progress Note Date: 01/30/23 Principal diagnosis: Acute coronary syndrome The patient is a 67-year-old gentleman with history of CAD as well as history of smoking and hypertension and dyslipidemia who was admitted to the hospital with heart failure. He underwent further workup including troponin came in to be abnormal and also an echo showed cardiomyopathy was EF around 30-35%. He was also in heart failure. January 282022 The patient was seen and evaluated this morning. He is symptomatic and continu es to have shortness of breath and he seems to be congested as well. He is on Lasix IV. Beside that he is on aspirin and beta chidi and statin. I'm going to add heparin in the light of elevated troponin. I informed the patient that he needs to undergo a heart catheterization to rule out severe CAD in the next 24 hours. January 292022 The patient was seen and evaluated this morning. He continues to have shortness of breath and he continues to be hypoxic on oxygen. He seems to be still in fluid overload as well. He cannot lay flat without being short of breath. He is on Lasix IV which I would suggest to continue. The echo showed severe cardiomyopathy as well as severe mitral regurgitation. The patient to undergo transesophageal echocardiogram and heart catheterization once his heart failure symptoms improved. Meanwhile continue the current medical regimen and continue heparin for additional 24 hours for a total of 48 hours. January 302022 The patient was seen and evaluated this morning. He still hypoxic requiring oxygen. He still wheezing on examination as well. He continues to be on Lasix IV and a has been diuresing well. He needs to undergo transesophageal echoca rdiogram and a heart catheterization to assess the mitral regurgitation and without severe CAD in the light of cardiomyopathy but with a regular that in the next 24 hours after he is a bit on the dry side. Meanwhile continue the current medical regimen including the current dose of Lasix IV and continue monitor the kidney function and electrolytes and also add lisinopril and Aldactone to the current medical regimen. Examination is remarkable for bilateral rhonchi and expiratory wheezing along with mild bilateral lower extremity edema Assessment Heart failure exacerbation secondary to heart failure with reduced ejection fraction Acute hypoxic respiratory failure secondary to COPD and CHF Severe cardiomyopathy Severe mitral regurgitation Evidence of myocardial injury History of smoking Multiple comorbid conditions Plan Continue the current medical regimen DC heparin Add lisinopril Add Aldactone Consider WM and heart catheterization Objective - Vital Signs Vital signs: Vital Signs Temp 98.0 F 01/30/23 07:43 Pulse 79 01/30/23 07:43 Resp 18 01/30/23 07:43 BP 165/83 01/30/23 07:43 Pulse Ox 94 L 01/30/23 07:43 FiO2 Intake & Output 01/29/23 01/30/23 01/30/23 18:59 06:59 18:59 Intake Total 50 Output Total 1150 325 Balance -1150 -275 Weight 73.6 kg 71.8 kg Intake: Intake, IV Titration 50 Amount ceFAZolin 2 gm In Sodium 50 Chloride 0.9% 50 ml @ 100 mls/hr IVPB Q8H ON LICENSE OF [facility] Rx#: [id number] Output: Urine 1150 325 Other: Voiding Method Urinal Urinal # Voids 1 - Labs CBC & Chem 7: 01/29/23 06:49 01/28/23 02:51 Labs: Abnormal Lab Results - Last 24 Hours (Table) 01/29/23 01/29/23 01/29/23 Range/Units 06:49 11:52 16:20 APTT 43.8 H (22.0-30.0) sec POC Glucose (mg/dL) 214 H 171 H (70-110) mg/dL 01/29/23 01/30/23 Range/Units 20:20 06:10 APTT (22.0-30.0) sec POC Glucose (mg/dL) 170 H 181 H (70-110) mg/dL
[2023-01-30] MEDS: ACETAMINOPHEN TAB 500 MG TAB PO SCH ×2 (08:15→19:55)
[2023-01-30] MEDS: ASPIRIN 81 MG PO SCH (08:15)
[2023-01-30] MEDS: FUROSEMIDE 10 MG/ML 4 ML VIAL IV SCH ×2 (08:15→19:56)
[2023-01-30] MEDS: NICOTINE 21MG/24HR PATCH TRANSDERM SCH (08:15)
[2023-01-30] MEDS: DAPAGLIFLOZIN PROPANEDIOL 10 MG TABLET PO SCH (08:16)
[2023-01-30] MEDS: SPIRONOLACTONE 25 MG TAB PO SCH (08:16)
[2023-01-30 08:44] LABS: Anisocytosis Slight; HGB 14.8 gm/dL (13.0-17.5); Hypochromasia Slight; MCH 28.4 pg (25.0-35.0); MCHC 31.4 g/dL (31.0-37.0); MCV 90.4 fL (80.0-100.0); Mean Platelet Volume 6.9; Platelet Count 207 k/uL (150-450); RDW 16.1 % (11.5-15.5); WBC 11.2 k/uL (3.8-10.6)
[2023-01-30 08:50] LABS: African American GFR (CKD) 85 (>60 ml/min/1.73 sqM); Blood Urea Nitrogen 40 mg/dL (9-20); Calcium 8.2 mg/dL (8.4-10.2); Chloride 98 mmol/L (98-107); Glucose 117 mg/dL (74-99); Non-African American GFR(CKD) 74 (>60 ml/min/1.73 sqM); Potassium 3.3 mmol/L (3.5-5.1); Sodium 140 mmol/L (137-145)
[2023-01-30 08:57] LABS: Anion Gap 8 mmol/L; Carbon Dioxide 34 mmol/L (22-30)
[2023-01-30] MEDS ORDERED: Potassium Replacement Protocol 1 EACH MISC MISCELLANE PRN (09:09)
[2023-01-30] MEDS: IPRATROPIUM-ALBUTEROL 3 ML NEB INHALATION SCH ×4 (09:18→21:16)
[2023-01-30] MEDS: SYMBICORT 160-4.5 MCG INHALER INHALATION SCH ×2 (09:18→21:16)
[2023-01-30] MEDS: POTASSIUM CHLORIDE ER 20 MEQ TAB.ER PO SCH ×2 (09:35→10:18)
[2023-01-30 11:42] LABS: Glucose,Whole Blood 266 mg/dL (70-110)
--- NOTE | 2023-01-30 12:18 | P.PN ---
Subjective Progress Note Date: 01/30/23 Principal diagnosis: Shortness of breath/chest pain. I am seeing this patient in new consultation today 01/28/2023 for new onset congestive heart failure and likely an exacerbation of COPD. The patient is a 67-year-old male with past medical history hypertension, remote myocardial infarction, and current ongoing tobacco dependence. He smokes approximately one pack per day. Patient has not been to a primary care provider in over 8 years. He states that he does have high blood pressure, but is not on any antihypertensives. He denies ever being diagnosed with COPD, but states "that he probably has it". He does take an [id number]-ewhqcmo Primatene inhaler on an as-needed basis. He has been using the inhaler more frequently over the last 2 weeks. The patient presented to the emergency room on January 26 complaining of increased lower extremity swelling and exertional shortness of breath. Denies any chest pain, heart palpitations, syncope, orthopnea. He also denies any fever, chills, myalgias, cough, hemoptysis. Patient is currently sitting up in bed, on 2 L/m nasal cannula, in no acute distress. He is wheezy on auscultation. He has been started on a combination of IV Solu-Medrol and bronchodilators. Chest x-ray on arrival showed small bilateral pleural ef fusions with likely compressive atelectasis. Pneumonia is felt to be less likely. Echocardiogram is admission shows severe LV dysfunction with ejection fraction of 30% and severe mitral regurgitation. His bilateral lower extremities are extremely swollen. He states that they have improved since admission. There is bilateral areas of erythema, possible cellulitis. The patient was started on IV cefazolin. He was also started on Lasix 40 mg twice a day. CBC and BMP on arrival were unremarkable. Troponins were mildly elevated at 0.036 and 0.053. NT proBNP was elevated at 14,200. Lactic acid level was elevated at 4.9 and is down to 1.9. Apparently, there was concern about the patient's mentation; and an ABG was done last night, showing a pO2 of 59, pCO2 of 48, pH of 7.42. The hypercapnia is likely chronic and is compensated. Patient is fully alert and oriented on my evaluation. Patient appears hemodynamically stable. The patient is seen today 01/29/2023 in follow-up on the selective care unit. He is currently resting comfortably in bed. Awake and alert in no acute distre ss. He is maintaining O2 saturations in the 90s on 3 L/m per nasal cannula. He is currently on a heparin drip. Plan for cardiac catheterization once stabilized. White count 13.3. Hemoglobin 14.5. Platelets 196. INR 1.1. Blood glucose 214. He is currently on DuoNeb inhalations, Symbicort, IV Solu- Medrol. NicoDerm patch in place. Progress note dated 01/30/2023. The patient is seen today in room 382. Continues on 3 L of oxygen. According to his nurse, the patient is scheduled for a cardiac catheterization, and transesophageal echocardiogram, tomorrow. Patient is clinically very stable. Lab data today includes a white count 11.2, with a normal hemoglobin, hematocrit, and platelet count. PTT is 176. Heparin has been discontinued. Sodium 140, potassium 3.3, chlorides 98, CO2 34, BUN 40, and creatinine 1.04. Objective - Vital Signs Vital signs: Vital Signs Temp 98.3 F 01/30/23 11:15 Pulse 76 01/30/23 11:15 Resp 18 01/30/23 11:15 BP 160/72 01/30/23 11:15 Pulse Ox 94 L 01/30/23 11:15 FiO2 Intake & Output 01/29/23 01/30/23 01/30/23 18:59 06:59 18:59 Intake Total 235.62 Output Total 1150 1475 Balance -1150 -1239.38 Weight 73.6 kg 71.8 kg Intake: Intake, IV Titration 235.62 Amount Heparin Sod,Pork in 0.45% 185.62 NaCl 25,000 unit In 0.45 % NaCl 1 250ml.bag @ 12 UNITS/KG/HR 8.88 mls/hr IV .Q24H [facility] Rx#: [id number] ceFAZolin 2 gm In Sodium 50 Chloride 0.9% 50 ml @ 100 mls/hr IVPB Q8H [facility] Rx#: [id number] Output: Urine 1150 1475 Other: Voiding Method Urinal Urinal # Voids 2 - Exam No acute distress, oriented 3. Currently on 3 L. No conversational dyspnea or use of accessory muscles. HEENT examination is grossly unremarkable. Mucous membranes are moist. No oral lesions. Neck supple. Full range of motion. No adenopathy thyromegaly or neck vein distention. Cardiovascular examination reveals regular rhythm rate. S1-S2 normal. No S3 or S4. No discernible murmur noted. Heart sounds are distant. Heart rate 76 bpm. Lungs reveal mostly clear breath sounds. Minimal scattered basilar crackles. No rhonchi or wheezes. Breath sounds are equal bilaterally. Saturations are 95% on 3 L. Abdomen soft bowel sounds are heard. No masses or tenderness. Extremities are intact. No cyanosis clubbing or edema. Skin is without rash or lesion. Neurologic examination is brief but nonfocal. - Labs CBC & Chem 7: 01/30/23 08:15 01/30/23 08:15 Labs: Abnormal Lab Results - Last 24 Hours (Table) 01/29/23 01/29/23 01/30/23 Range/Units 16:20 20:20 06:10 WBC (3.8-10.6) k/uL RDW (11.5-15.5) % APTT (22.0-30.0) sec Potassium (3.5-5.1) mmol/L Carbon Dioxide (22-30) mmol/L BUN (9-20) mg/dL Glucose (74-99) mg/dL POC Glucose (mg/dL) 171 H 170 H 181 H (70-110) mg/dL Calcium (8.4-10.2) mg/dL 01/30/23 01/30/23 01/30/23 Range/Units 08:15 08:15 08:15 WBC 11.2 H (3.8-10.6) k/uL RDW 16.1 H (11.5-15.5) % APTT 175.8 H* (22.0-30.0) sec Potassium 3.3 L (3.5-5.1) mmol/L Carbon Dioxide 34 H (22-30) mmol/L BUN 40 H (9-20) mg/dL Glucose 117 H (74-99) mg/dL POC Glucose (mg/dL) (70-110) mg/dL Calcium 8.2 L (8.4-10.2) mg/dL 01/30/23 Range/Units 11:41 WBC (3.8-10.6) k/uL RDW (11.5-15.5) % APTT (22.0-30.0) sec Potassium (3.5-5.1) mmol/L Carbon Dioxide (22-30) mmol/L BUN (9-20) mg/dL Glucose (74-99) mg/dL POC Glucose (mg/dL) 266 H (70-110) mg/dL Calcium (8.4-10.2) mg/dL Assessment and Plan Assessment: Acute hypoxemic respiratory failure, currently on 3 L/m nasal cannula. Possibly multifactorial secondary to exacerbation of systolic congestive heart failure and suspected mild COPD exacerbation. Chest x-ray on arrival showed small bilateral pleural effusions with likely compressive atelectasis. Pneumonia is felt to be less likely. Echocardiogram is admission shows severe LV dysfunction with ejection fraction of 30% and severe mitral regurgitation. NT proBNP was elevated at 14,200. Cardiac catheterization and transesophageal echocardiogram, planned for 01/31/2023. Likely chronic and compensated hypercapnic respiratory failure. Elevated troponins, possibly related to supply/demand mismatch. Suspected bilateral lower extremity cellulitis, initiated on cefazolin. Lactic acidemia, improved. Benign essential hypertension. Reported history of myocardial infarction. Chronic ongoing tobacco dependence. Plan: Plan dated 01/30/2023. The patient appears be doing much better. His breathing is much improved. Is on 3 L. The patient is scheduled to have a cardiac catheterization and transesophageal echocardiogram tomorrow. We will continue to follow. Labs, x- rays, and medications are all reviewed. The patient's prognosis remains guarded. He continues on antibiotics for his cellulitis. Time with Patient: Less than 30
[2023-01-30 16:22] LABS: Glucose,Whole Blood 110 mg/dL (70-110)
[2023-01-30] MEDS: INSULIN DETEMIR (LEVEMIR) 100 UNIT/ML SYR SQ SCH (19:56)
[2023-01-30] MEDS: ATORVASTATIN 80 MG TAB PO SCH (19:57)
[2023-01-30 20:01] LABS: Glucose,Whole Blood 147 mg/dL (70-110)
--- NOTE | 2023-01-30 22:39 | PN ---
PROGRESS NOTE DATE OF SERVICE: 01/30/2023 CHIEF COMPLAINT: Congestive heart failure. HISTORY OF PRESENT ILLNESS: This gentleman is feeling better. He is feeling less short of breath. He denies any chest pain. PHYSICAL EXAMINATION: CHEST: Clear. CARDIAC: Unchanged. ABDOMEN: Soft, nontender. IMPRESSION: 1. Congestive heart failure with reduced ejection fraction. 2. Chronic obstructive pulmonary disease. PLAN: 1. Address blood sugars, which are elevated. 2. Address hypokalemia. 3. Address elevated blood pressure. 4. Stop lisinopril. 5. Start Entresto twice a day. 6. Stop Solu-Medrol. MMODL / IJN: [id number] /
--- NOTE | 2023-01-30 23:06 | PN ---
PROGRESS NOTE CHIEF COMPLAINT: Congestive heart failure. HISTORY OF PRESENT ILLNESS: This gentleman is breathing a little bit better. He does have significant heart failure. Troponin is up slightly, but he has had no chest pain. Ejection fraction is low. He is being further evaluated by Cardiology. PHYSICAL EXAM: CHEST: He denies any chest pain. Chest demonstrates decreased breath sounds with rales at the bases. CARDIAC: Unremarkable. IMPRESSION: 1. Acute congestive heart failure. 2. COPD. PLAN: Continue to treat congestive heart failure and wait for further studies from Cardiology. MMODL / IJN: [id number] /
[2023-01-31] MEDS: PANTOPRAZOLE 40 MG TABLET PO SCH (06:20)
[2023-01-31] MEDS: ACETAMINOPHEN TAB 500 MG TAB PO SCH ×2 (06:20→20:43)
[2023-01-31] MEDS: ASPIRIN 81 MG PO SCH (06:20)
[2023-01-31] MEDS: SPIRONOLACTONE 25 MG TAB PO SCH (06:20)
[2023-01-31] MEDS: carvediloL 6.25 MG TAB PO SCH ×2 (06:20→17:09)
[2023-01-31] MEDS: POTASSIUM CHLORIDE ER 10 MEQ TAB.ER.PRT PO SCH (06:21)
[2023-01-31 06:32] LABS: Glucose,Whole Blood 124 mg/dL (70-110)
[2023-01-31] MEDS: INSULIN ASPART (NovoLOG) 100 UNIT/ML VIAL SQ SCH ×4 (06:34→20:31)
--- NOTE | 2023-01-31 08:01 | P.PN ---
Subjective Progress Note Date: 01/31/23 Principal diagnosis: Acute coronary syndrome The patient is a 67-year-old gentleman with history of CAD as well as history of smoking and hypertension and dyslipidemia who was admitted to the hospital with heart failure. He underwent further workup including troponin came in to be abnormal and also an echo showed cardiomyopathy was EF around 30-35%. He was also in heart failure. January 282022 The patient was seen and evaluated this morning. He is symptomatic and continu es to have shortness of breath and he seems to be congested as well. He is on Lasix IV. Beside that he is on aspirin and beta chidi and statin. I'm going to add heparin in the light of elevated troponin. I informed the patient that he needs to undergo a heart catheterization to rule out severe CAD in the next 24 hours. January 292022 The patient was seen and evaluated this morning. He continues to have shortness of breath and he continues to be hypoxic on oxygen. He seems to be still in fluid overload as well. He cannot lay flat without being short of breath. He is on Lasix IV which I would suggest to continue. The echo showed severe cardiomyopathy as well as severe mitral regurgitation. The patient to undergo transesophageal echocardiogram and heart catheterization once his heart failure symptoms improved. Meanwhile continue the current medical regimen and continue heparin for additional 24 hours for a total of 48 hours. January 302022 The patient was seen and evaluated this morning. He still hypoxic requiring oxygen. He still wheezing on examination as well. He continues to be on Lasix IV and a has been diuresing well. He needs to undergo transesophageal echoca rdiogram and a heart catheterization to assess the mitral regurgitation and without severe CAD in the light of cardiomyopathy but with a regular that in the next 24 hours after he is a bit on the dry side. Meanwhile continue the current medical regimen including the current dose of Lasix IV and continue monitor the kidney function and electrolytes and also add lisinopril and Aldactone to the current medical regimen. January 312022 Patient was seen and evaluated this morning. He is not having any chest pain or chest discomfort. He still hypoxic on oxygen. He continues to be on IV Lasix. The plan is to pursue transesophageal echocardiogram and heart catheterization later on today. No blood work from the morning. He looks slightly pale on examination. We'll follow-up with CBC in the morning. Meanwhile continue the current medical regimen. Examination is remarkable for bilateral rhonchi and expiratory wheezing along with mild bilateral lower extremity edema Assessment Heart failure exacerbation secondary to heart failure with reduced ejection fraction Acute hypoxic respiratory failure secondary to COPD and CHF Severe cardiomyopathy Severe mitral regurgitation Evidence of myocardial injury History of smoking Multiple comorbid conditions Plan Continue the current medical regimen Obtain a CBC and BMP this morning Proceed with WM and heart catheterization Objective - Vital Signs Vital signs: Vital Signs Temp 97.9 F 01/31/23 07:47 Pulse 79 01/31/23 07:47 Resp 18 01/31/23 07:47 BP 126/85 01/31/23 07:47 Pulse Ox 93 L 01/31/23 07:47 FiO2 Intake & Output 01/30/23 01/31/23 01/31/23 18:59 06:59 18:59 Intake Total 485.62 20 10 Output Total 2225 550 Balance -1739.38 -530 10 Weight 71.2 kg Intake: IV 10 20 10 Invasive Line 3 10 20 10 Intake, IV Titration 235.62 Amount Heparin Sod,Pork in 0.45% 185.62 NaCl 25,000 unit In 0.45 % NaCl 1 250ml.bag @ 12 UNITS/KG/HR 8.88 mls/hr IV .Q24H [facility] Rx#: [id number] ceFAZolin 2 gm In Sodium 50 Chloride 0.9% 50 ml @ 100 mls/hr IVPB Q8H [facility] Rx#: [id number] Oral 240 Output: Urine 2225 550 Other: Voiding Method Urinal Urinal Urinal # Voids 1 - Labs CBC & Chem 7: 01/30/23 08:15 01/30/23 08:15 Labs: Abnormal Lab Results - Last 24 Hours (Table) 01/30/23 01/30/23 01/30/23 Range/Units 08:15 08:15 08:15 WBC 11.2 H (3.8-10.6) k/uL RDW 16.1 H (11.5-15.5) % APTT 175.8 H* (22.0-30.0) sec Potassium 3.3 L (3.5-5.1) mmol/L Carbon Dioxide 34 H (22-30) mmol/L BUN 40 H (9-20) mg/dL Glucose 117 H (74-99) mg/dL POC Glucose (mg/dL) (70-110) mg/dL Calcium 8.2 L (8.4-10.2) mg/dL 01/30/23 01/30/23 01/31/23 Range/Units 11:41 20:00 06:32 WBC (3.8-10.6) k/uL RDW (11.5-15.5) % APTT (22.0-30.0) sec Potassium (3.5-5.1) mmol/L Carbon Dioxide (22-30) mmol/L BUN (9-20) mg/dL Glucose (74-99) mg/dL POC Glucose (mg/dL) 266 H 147 H 124 H (70-110) mg/dL Calcium (8.4-10.2) mg/dL
[2023-01-31] MEDS: FUROSEMIDE 10 MG/ML 4 ML VIAL IV SCH ×2 (08:13→20:44)
[2023-01-31] MEDS: NICOTINE 21MG/24HR PATCH TRANSDERM SCH (08:14)
[2023-01-31] MEDS: IPRATROPIUM-ALBUTEROL 3 ML NEB INHALATION SCH ×4 (08:25→21:33)
[2023-01-31] MEDS: SYMBICORT 160-4.5 MCG INHALER INHALATION SCH ×2 (08:25→21:33)
[2023-01-31] MEDS ORDERED: IV FLUID CONTINUATION 200 ML IV ONE (10:15)
[2023-01-31] MEDS ORDERED: MIDAZOLAM 2 MG/2 ML VIAL IVP ONE (10:20)
[2023-01-31] MEDS ORDERED: BENZOCAINE SPRAY 1 CAN TOPICAL ONE (10:20)
[2023-01-31] MEDS ORDERED: fentaNYL (PF) 50 MCG/ML 2 ML AMP ONE (10:22)
[2023-01-31] MEDS: fentaNYL (PF) 50 MCG/ML 2 ML AMP IVP ONE ×2 (10:24→11:09)
[2023-01-31] MEDS ORDERED: LIDOCAINE 1% INJ 10MG/ML (20 ML MDV) ONE (10:37)
[2023-01-31] MEDS ORDERED: LIDOCAINE 1% INJ 10MG/ML (5 ML VIAL-PF) SQ ONE (10:51)
[2023-01-31] MEDS ORDERED: VERAPAMIL SYRINGE (5 MG/10 ML) INTRAARTER ONE (10:52)
[2023-01-31] MEDS ORDERED: HEPARIN SODIUM 1,000 UN/ML (10ML VL) ONE (10:57)
[2023-01-31] MEDS ORDERED: SODIUM CHLORIDE 0.9% 500 ML 500 ML IV ONE (11:14)
[2023-01-31] MEDS ORDERED: SODIUM CHLORIDE 0.9% 250 ML IV ONE (11:14)
[2023-01-31] MEDS ORDERED: IOPAMIDOL-370 100ML BTL INJ ONE ×2 (11:15→11:44)
[2023-01-31] MEDS ORDERED: PRASUGREL 10 MG TAB ONE ×2 (11:29→11:30)
[2023-01-31] MEDS ORDERED: PRASUGREL 10 MG TAB PO ONE (11:35)
--- NOTE | 2023-01-31 11:49 | P.PN ---
Subjective Progress Note Date: 01/31/23 Principal diagnosis: Shortness of breath/chest pain. I am seeing this patient in new consultation today 01/28/2023 for new onset congestive heart failure and likely an exacerbation of COPD. The patient is a 67-year-old male with past medical history hypertension, remote myocardial infarction, and current ongoing tobacco dependence. He smokes approximately one pack per day. Patient has not been to a primary care provider in over 8 years. He states that he does have high blood pressure, but is not on any antihypertensives. He denies ever being diagnosed with COPD, but states "that he probably has it". He does take an splz-cni-gxacxje Primatene inhaler on an as-needed basis. He has been using the inhaler more frequently over the last 2 weeks. The patient presented to the emergency room on January 26 complaining of increased lower extremity swelling and exertional shortness of breath. Denies any chest pain, heart palpitations, syncope, orthopnea. He also denies any fever, chills, myalgias, cough, hemoptysis. Patient is currently sitting up in bed, on 2 L/m nasal cannula, in no acute distress. He is wheezy on auscultation. He has been started on a combination of IV Solu-Medrol and bronchodilators. Chest x-ray on arrival showed small bilateral pleural ef fusions with likely compressive atelectasis. Pneumonia is felt to be less likely. Echocardiogram is admission shows severe LV dysfunction with ejection fraction of 30% and severe mitral regurgitation. His bilateral lower extremities are extremely swollen. He states that they have improved since admission. There is bilateral areas of erythema, possible cellulitis. The patient was started on IV cefazolin. He was also started on Lasix 40 mg twice a day. CBC and BMP on arrival were unremarkable. Troponins were mildly elevated at 0.036 and 0.053. NT proBNP was elevated at 14,200. Lactic acid level was elevated at 4.9 and is down to 1.9. Apparently, there was concern about the patient's mentation; and an ABG was done last night, showing a pO2 of 59, pCO2 of 48, pH of 7.42. The hypercapnia is likely chronic and is compensated. Patient is fully alert and oriented on my evaluation. Patient appears hemodynamically stable. The patient is seen today 01/29/2023 in follow-up on the selective care unit. He is currently resting comfortably in bed. Awake and alert in no acute distre ss. He is maintaining O2 saturations in the 90s on 3 L/m per nasal cannula. He is currently on a heparin drip. Plan for cardiac catheterization once stabilized. White count 13.3. Hemoglobin 14.5. Platelets 196. INR 1.1. Blood glucose 214. He is currently on DuoNeb inhalations, Symbicort, IV Solu- Medrol. NicoDerm patch in place. Progress note dated 01/30/2023. The patient is seen today in room 382. Continues on 3 L of oxygen. According to his nurse, the patient is scheduled for a cardiac catheterization, and transesophageal echocardiogram, tomorrow. Patient is clinically very stable. Lab data today includes a white count 11.2, with a normal hemoglobin, hematocrit, and platelet count. PTT is 176. Heparin has been discontinued. Sodium 140, potassium 3.3, chlorides 98, CO2 34, BUN 40, and creatinine 1.04. Progress note dated 01/31/2023. 67-year-old male seen today in room 382. The patient continues on oxygen at 3 L. No IV fluids. The patient is going to go to the catheterization laboratory, for cardiac catheterization today, and also a transesophageal echocardiogram. No new labs today other than a glucose of 124. No new chest x-ray today. Clinically, the patient appears to be stable. Objective - Vital Signs Vital signs: Vital Signs Temp 97.9 F 01/31/23 07:47 Pulse 80 01/31/23 08:40 Resp 18 01/31/23 07:47 BP 126/85 01/31/23 07:47 Pulse Ox 95 01/31/23 08:25 FiO2 Intake & Output 01/30/23 01/31/23 01/31/23 18:59 06:59 18:59 Intake Total 485.62 20 160 Output Total 2225 550 Balance -1739.38 -530 160 Weight 71.2 kg Intake: IV 10 20 160 Invasive Line 3 10 20 10 Intake, IV Titration 235.62 Amount Heparin Sod,Pork in 0.45% 185.62 NaCl 25,000 unit In 0.45 % NaCl 1 250ml.bag @ 12 UNITS/KG/HR 8.88 mls/hr IV .Q24H [facility] Rx#: [id number] ceFAZolin 2 gm In Sodium 50 Chloride 0.9% 50 ml @ 100 mls/hr IVPB Q8H [facility] Rx#: [id number] Oral 240 Output: Urine 2225 550 Other: Voiding Method Urinal Urinal Urinal # Voids 1 - Exam No acute distress, oriented 3. Currently on 3 L. No conversational dyspnea or use of accessory muscles. HEENT examination is grossly unremarkable. Mucous membranes are moist. No oral lesions. Neck supple. Full range of motion. No adenopathy thyromegaly or neck vein distention. Cardiovascular examination reveals regular rhythm rate. S1-S2 normal. No S3 or S4. No discernible murmur noted. Heart sounds are distant. Heart rate 80 bpm. Lungs reveal mostly clear breath sounds. Minimal scattered basilar crackles. No rhonchi or wheezes. Breath sounds are equal bilaterally. Saturations are 95% on 3 L. Abdomen soft bowel sounds are heard. No masses or tenderness. Extremities are intact. No cyanosis clubbing or edema. Skin is without rash or lesion. Neurologic examination is brief but nonfocal. - Labs CBC & Chem 7: 01/30/23 08:15 01/30/23 08:15 Labs: Abnormal Lab Results - Last 24 Hours (Table) 01/30/23 01/31/23 Range/Units 20:00 06:32 POC Glucose (mg/dL) 147 H 124 H (70-110) mg/dL Assessment and Plan Assessment: Acute hypoxemic respiratory failure, currently on 3 L/m nasal cannula. Possibly multifactorial secondary to exacerbation of systolic congestive heart failure and suspected mild COPD exacerbation. Chest x-ray on arrival showed small bilateral pleural effusions with likely compressive atelectasis. Pneumonia is felt to be less likely. Echocardiogram is admission shows severe LV dysfunction with ejection fraction of 30% and severe mitral regurgitation. NT proBNP was elevated at 14,200. Cardiac catheterization and transesophageal echocardiogram, planned for 01/31/2023. Likely chronic and compensated hypercapnic respiratory failure. Elevated troponins, possibly related to supply/demand mismatch. Suspected bilateral lower extremity cellulitis, initiated on cefazolin. Lactic acidemia, improved. Benign essential hypertension. Reported history of myocardial infarction. Chronic ongoing tobacco dependence. Plan: Plan dated 01/30/2023. The patient appears be doing much better. His breathing is much improved. Is on 3 L. The patient is scheduled to have a cardiac catheterization and transesophageal echocardiogram tomorrow. We will continue to follow. Labs, x- rays, and medications are all reviewed. The patient's prognosis remains guarded. He continues on antibiotics for his cellulitis. Plan dated 01/31/2023. The patient is having a cardiac catheterization and transesophageal echocardiogram today. The patient is currently on 3 L. Saturations are 95%. He's not receiving any IV fluids. He continues on antibiotics. We'll await the results of the above procedures. Prognosis remains guarded. No additional recommendations at this time. Today's labs are currently pending. Time with Patient: Less than 30
[2023-01-31] MEDS ORDERED: RX INFO: IV CONTRAST WAS GIVEN 1 EACH MISC MISCELLANE PRN (11:54)
[2023-01-31] MEDS ORDERED: ATROPINE SULFATE 0.1 MG/ML 10ML SYRINGE IV PRN (11:54)
[2023-01-31] MEDS ORDERED: NITROGLYCERIN SL TABS 0.4 MG TAB SUBLINGUAL PRN (11:54)
[2023-01-31] MEDS ORDERED: MAG HYDROX/AL HYDROX/SIMETH 30 ML CUP PO PRN (11:54)
[2023-01-31] MEDS ORDERED: ZOLPIDEM 5 MG TAB PO PRN (11:54)
[2023-01-31] MEDS ORDERED: SODIUM CHLORIDE 0.9% 1,000 ML in EMPTY BAG 1 BAG IV SCH (12:00)
[2023-01-31 12:07] LABS: Glucose,Whole Blood 107 mg/dL (70-110)
[2023-01-31] MEDS: DAPAGLIFLOZIN PROPANEDIOL 10 MG TABLET PO SCH (14:18)
[2023-01-31 14:52] LABS: Anisocytosis Slight; HCT 50.4 % (39.0-53.0); HGB 15.3 gm/dL (13.0-17.5); Hypochromasia Moderate; MCH 27.7 pg (25.0-35.0); MCHC 30.4 g/dL (31.0-37.0); MCV 91.2 fL (80.0-100.0); Platelet Count 190 k/uL (150-450); RBC 5.52 m/uL (4.30-5.90); WBC 10.1 k/uL (3.8-10.6)
[2023-01-31 15:07] LABS: ALT 17 U/L (4-49); AST 39 U/L (17-59); African American GFR (CKD) 84 (>60 ml/min/1.73 sqM); Albumin 3.1 g/dL (3.5-5.0); Alkaline Phosphatase 90 U/L (38-126); Blood Urea Nitrogen 40 mg/dL (9-20); Calcium 8.2 mg/dL (8.4-10.2); Chloride 94 mmol/L (98-107); Glucose 174 mg/dL (74-99); Magnesium 2.1 mg/dL (1.6-2.3); Non-African American GFR(CKD) 73 (>60 ml/min/1.73 sqM); Potassium 3.1 mmol/L (3.5-5.1); Sodium 137 mmol/L (137-145); Total Bilirubin 0.6 mg/dL (0.2-1.3)
[2023-01-31 15:13] LABS: Anion Gap 9 mmol/L
[2023-01-31 15:24] LABS: Carbon Dioxide 34 mmol/L (22-30)
--- NOTE | 2023-01-31 16:00 | P.PCN ---
Date of Procedure: 01/31/23 Operative Findings: CARDIAC CATHETERIZATION AND PERCUTANEOUS CORONARY INTERVENTION PERFORMING PHYSICIAN: Pradip Torres MD, [facility] PROCEDURE PERFORMED: 1. Selective right and left coronary angiogram 2. Left heart catheterization 3. Successful stenting of proximal LAD using 3.5 x 33 mm Xience JOAN with an excellent angiographic results 4. Adjunctive use of Doppler wire and vascular imaging 5. Ultrasound guided access of the right radial artery INDICATION: Acute non-ST elevation myocardial infarction in the 67-year-old gentleman who was admitted to the hospital with shortness of breath. He underwent an echo which revealed cardiomyopathy. In the light of that a heart catheterization was advised. COMPLICATION: None APPROACH: Right radial artery LEVEL OF SEDATION: Moderate with the sedation time off 45 minutes PROCEDURE DESCRIPTION: After obtaining an informed consent the patient was brought to the cardiac parking lot laborer. The right radial artery was cannulated using micropuncture technique, the micropuncture wire passed easily then I placed a 6-Angolan sheath. Please note that the right radial artery was cannulated using micropuncture technique under ultrasound guidance. Subsequently I gave the patient 4000 of heparin IV. Also he was given 2 mg of verapamil intra-arterial. Selective right and left coronary angiogram performed using JR4 and JL 3.5 catheters. Then left heart catheterization was performed using 6-Angolan pigtail catheter. After that I did intervene on the left anterior descending artery. The procedure was completed was no complication SELECTIVE CORONARY ANGIOGRAM: The right coronary artery: Large caliber vessel and a dominant vessel. The RCA has mild diffuse luminal irregularity only. Distally bifurcates into PDA and PLV branches. Left main: Is angiographically normal. Bifurcates into codominant left circumflex and left anterior descending artery The left circumflex: Large caliber vessel codominant vessel. The LCx is angiographically normal. Central an OM1 and OM 2 and Both Appeared to Be Angiographically Normal Then Distally Bifurcates into PDA and PLV Branches the Appears to Be Angiographically Normal The left anterior descending artery: The proximal to mid LAD has a tubular lesion appears to be in the range of 60%. We did perform iFR and that came in to be ischemic and 0.84. The mid LAD has another lesion appears to be in the range of 40-50%. The LAD distally appears to be angiographically normal HEMODYNAMICS: The LVEDP was 28 mmHg was no significant gradient across aortic valve PCI OF THE LAD: Anticoagulation was initiated using heparin with continuous ACT monitoring. After zeroing the Doppler wire and equalizing between the Doppler wire and guiding catheter and after engaging the left main using JL 3.5 guiding catheter and wiring the LAD using the Doppler wire I did iFR and that came in to be ischemic 0.84. At that point intravascular ultrasound was performed and showed a diameter of the LAD around 3.5 mm. At that point and because the LAD lesion was very soft and calcified I decided to do direct stenting. I did direct stenting of the LAD using 3.5 x 33 mm stent where the stent was positioned under fluoroscopy guidance and deployed under fluoroscopy guidance. Postdilatation was performed using 4 mm noncompliant balloon with an excellent angiographic results by the end and reduction of stenosis from her was 70% to 0%. The procedure was completed was no complication. CONCLUSION: 1. Intermediate disease involving the proximal LAD. iFR was ischemic and 0.84. I did perform successful stenting of the proximal LAD 2. Elevated left-sided filling pressure at 28 mmHg POSTPROCEDURE MANAGEMENT: 1. Dual antiplatelet therapy using aspirin and Effient for 12 month 2. Aggressive cholesterol control 3. Follow-up with the patient
--- NOTE | 2023-01-31 16:04 | P.PCN ---
Date of Procedure: 01/31/23 Operative Findings: TRANSESOPHAGEAL ECHOCARDIOGRAM TOP SPOTTER: OTILIO DOMINGUEZ MD, [facility] INDICATION: Mitral regurgitation SEDATION: Conscious sedation COMPLICATION: None LEVEL OF SEDATION Moderate was sedation length of 12 minutes PROCEDURE DESCRIPTION: After obtaining an informed consent, the patient was brought to transesophageal echocardiogram room. Pulse oximetry and heart monitors were attached to the patient. The patient throat was sprayed using lidocaine. The patient was turned into left lateral position. After that a bite guard was placed. After an appropriate conscious sedation was initiated, the transesophageal echocardiogram was advanced through a bite guard into the mid esophagus. A 2-D echocardiogram images, color Doppler images, continuous wave images, pulse-wave images, of various cardiac structure were performed. After that the transesophageal echocardiogram probe was advanced into the stomach and fixed to obtain transgastric view was. The probe was brought into the mid esophagus. Inter-atrial septum was interrogated using 2D images, color Doppler images, and then contrast study. After that transesophageal echocardiogram was withdrawn out and upon withdrawing the descending thoracic aorta all the way up to the arc h was evaluated. FINDING: The LV is dilated. The LV systolic function appeared to be impaired with EF around 30-35%. The right ventricle appeared to be mildly dilated. The left atrium and right atrium appeared to be mildly dilated. The left atrial appendage appeared to be free from any thrombus. The interatrial septum appeared to be intact. The aortic valve is bicuspid valve was evidence of effusion of the right and left coronary cusp and evidence off mild aortic insufficiency. The mitral valve appeared to be intact in terms off leaflet thickness was evidence of moderate mitral regurgitation with a central jet. The mitral regurgitation was moderate by quantitative measurements. The PISA was less than 1 cm and digit with was 0.2 cm. There is moderate tricuspid regurgitation. No evidence of pericardial effusion identified. CONCLUSION: 1. Dilated LV with severely decreased LV systolic function and EF around 30%. 2. Intact mitral valve leaflets with evidence of moderate mitral regurgitation by quantitative measurements. Mitral regurgitation is likely related to the cardiomyopathy. 3. Bicuspid aortic valve with fusion of the right and left coronary cusps and mild aortic insufficiency 4. Moderate tricuspid regurgitation 5. Intact interatrial septum 6. No evidence of pericardial effusion
[2023-01-31] MEDS ORDERED: POTASSIUM CHLORIDE ER 20 MEQ TAB.ER PO STA (16:08)
[2023-01-31 16:48] LABS: Glucose,Whole Blood 106 mg/dL (70-110)
[2023-01-31 20:17] LABS: Glucose,Whole Blood 142 mg/dL (70-110)
[2023-01-31] MEDS: ATORVASTATIN 80 MG TAB PO SCH (20:43)
[2023-01-31] MEDS: INSULIN DETEMIR (LEVEMIR) 100 UNIT/ML SYR SQ SCH (20:43)
[2023-01-31] MEDS: SACUBITRIL/VALSARTAN 24 MG-26 MG TABLET PO SCH (20:44)
[2023-02-01 06:27] LABS: Glucose,Whole Blood 82 mg/dL (70-110)
[2023-02-01] MEDS: INSULIN ASPART (NovoLOG) 100 UNIT/ML VIAL SQ SCH ×4 (06:33→21:28)
[2023-02-01] MEDS: PANTOPRAZOLE 40 MG TABLET PO SCH (06:48)
[2023-02-01] MEDS: carvediloL 6.25 MG TAB PO SCH ×2 (06:48→16:31)
[2023-02-01 07:01] LABS: African American GFR (CKD) 87 (>60 ml/min/1.73 sqM); Non-African American GFR(CKD) 75 (>60 ml/min/1.73 sqM)
[2023-02-01] MEDS: IPRATROPIUM-ALBUTEROL 3 ML NEB INHALATION SCH ×4 (08:06→20:56)
[2023-02-01] MEDS: SYMBICORT 160-4.5 MCG INHALER INHALATION SCH ×2 (08:06→20:56)
[2023-02-01] MEDS: FUROSEMIDE 10 MG/ML 4 ML VIAL IV SCH ×2 (09:37→21:28)
[2023-02-01] MEDS: PRASUGREL 10 MG TAB PO SCH (09:37)
[2023-02-01] MEDS: NICOTINE 21MG/24HR PATCH TRANSDERM SCH (09:37)
[2023-02-01] MEDS: SACUBITRIL/VALSARTAN 24 MG-26 MG TABLET PO SCH ×2 (09:38→21:27)
[2023-02-01] MEDS: ACETAMINOPHEN TAB 500 MG TAB PO SCH ×2 (09:38→21:27)
[2023-02-01] MEDS: ASPIRIN 81 MG PO SCH (09:39)
[2023-02-01] MEDS: POTASSIUM CHLORIDE ER 10 MEQ TAB.ER.PRT PO SCH (09:39)
[2023-02-01] MEDS: SPIRONOLACTONE 25 MG TAB PO SCH (09:39)
[2023-02-01] MEDS: DAPAGLIFLOZIN PROPANEDIOL 10 MG TABLET PO SCH (09:39)
[2023-02-01 11:29] LABS: Glucose,Whole Blood 131 mg/dL (70-110)
--- NOTE | 2023-02-01 12:02 | P.PN ---
Subjective Progress Note Date: 02/01/23 I am seeing this patient in new consultation today 01/28/2023 for new onset congestive heart failure and likely an exacerbation of COPD. The patient is a 67-year-old male with past medical history hypertension, remote myocardial infarction, and current ongoing tobacco dependence. He smokes approximately one pack per day. Patient has not been to a primary care provider in over 8 years. He states that he does have high blood pressure, but is not on any antihypertensives. He denies ever being diagnosed with COPD, but states "that he probably has it". He does take an gavs-cwo-ejqkfut Primatene inhaler on an as-needed basis. He has been using the inhaler more frequently over the last 2 weeks. The patient presented to the emergency room on January 26 complaining of increased lower extremity swelling and exertional shortness of breath. Denies any chest pain, heart palpitations, syncope, orthopnea. He also denies any fever, chills, myalgias, cough, hemoptysis. Patient is currently sitting up in bed, on 2 L/m nasal cannula, in no acute distress. He is wheezy on auscultation. He has been started on a combination of IV Solu-Medrol and bronchodilators. Chest x-ray on arrival showed small bilateral pleural effusions with likely compressive atelectasis. Pneumonia is felt to be less likely. Echocardiogram is admission shows severe LV dysfunction with ejection fraction of 30% and severe mitral regurgitation. His bilateral lower extremities are extremely swollen. He states that they have improved since admission. There is bilateral areas of erythema, possible cellulitis. The pat ient was started on IV cefazolin. He was also started on Lasix 40 mg twice a day. CBC and BMP on arrival were unremarkable. Troponins were mildly elevated at 0.036 and 0.053. NT proBNP was elevated at 14,200. Lactic acid level was elevated at 4.9 and is down to 1.9. Apparently, there was concern about the patient's mentation; and an ABG was done last night, showing a pO2 of 59, pCO2 of 48, pH of 7.42. The hypercapnia is likely chronic and is compensated. Patient is fully alert and oriented on my evaluation. Patient appears hemodynamically stable. The patient is seen today 01/29/2023 in follow-up on the selective care unit. He is currently resting comfortably in bed. Awake and alert in no acute distress. He is maintaining O2 saturations in the 90s on 3 L/m per nasal cannula. He is currently on a heparin drip. Plan for cardiac catheterization once stabilized. White count 13.3. Hemoglobin 14.5. Platelets 196. INR 1.1. Blood glucose 214. He is currently on DuoNeb inhalations, Symbicort, IV Solu- Medrol. NicoDerm patch in place. Progress note dated 01/30/2023. The patient is seen today in room 382. Continues on 3 L of oxygen. According to his nurse, the patient is scheduled for a cardiac catheterization, and transesophageal echocardiogram, tomorrow. Patient is clinically very stable. Lab data today includes a white count 11.2, with a normal hemoglobin, hem atocrit, and platelet count. PTT is 176. Heparin has been discontinued. Sodium 140, potassium 3.3, chlorides 98, CO2 34, BUN 40, and creatinine 1.04. Progress note dated 01/31/2023. 67-year-old male seen today in room 382. The patient continues on oxygen at 3 L. No IV fluids. The patient is going to go to the catheterization laboratory, for cardiac catheterization today, and also a transesophageal echocardiogram. No new labs today other than a glucose of 124. No new chest x-ray today. Clinically, the patient appears to be stable. On 02/01/2023 on seeing the patient for a follow-up. The patient presented with acute hypoxic respiratory failure, CHF, systolic heart failure and mitral valve regurgitation. Based on that, the patient underwent a WM yesterday which confirmed presence of a dilated LV with severely decreased LV function with an ejection fraction of around 30%. The mitral valve leaflets were intact and there was moderate degree of regurgitation related to his cardiomyopathy. Aortic valve was bicuspid. There was moderate tricuspid regurgitation. The patient also underwent a cardiac catheterization yesterday and the procedure showed left ventricular end-diastolic pressure of 28. There was indeterminate or intermediate disease involving the proximal LAD. The patient was given a stent in that lesion as this was felt to be significant. He was placed on a combination of aspirin and Effient. He is also on Lipitor 80 mg by mouth daily, Coreg 6.25 mg by mouth twice a day, and Aldactone and he was also started on Entresto at a dose of mg. He is also on Lasix 40 mg IV every 12 hours. Is currently on 3 L O2 nasal cannula. Chest x-ray findings are consistent with CHF and pulmonary edema and bilateral pleural effusion slightly worse on the right. Objective - Vital Signs Vital signs: Vital Signs Temp 97.7 F 02/01/23 11:44 Pulse 71 02/01/23 11:44 Resp 20 02/01/23 11:44 BP 125/71 02/01/23 11:44 Pulse Ox 95 02/01/23 11:44 FiO2 Intake & Output 01/31/23 02/01/23 02/01/23 18:59 06:59 18:59 Intake Total 906 240 Output Total 700 1200 1265 Balance 206 -1200 -1025 Weight 70.1 kg Intake: IV 190 Invasive Line 3 30 Invasive Line 4 10 Oral 716 240 Output: Urine 700 1200 1265 Other: Voiding Method Urinal Urinal Urinal - Exam No acute distress, oriented 3. Currently on 3 L. No conversational dyspnea or use of accessory muscles. HEENT examination is grossly unremarkable. Mucous membranes are moist. No oral lesions. Neck supple. Full range of motion. No adenopathy thyromegaly or neck vein distention. Cardiovascular examination reveals regular rhythm rate. S1-S2 normal. No S3 or S4. No discernible murmur noted. Heart sounds are distant. Lungs reveal mostly clear breath sounds. Minimal scattered basilar crackles. No rhonchi or wheezes. Breath sounds are equal bilaterally. Saturations are 95% on 3 L. Abdomen soft bowel sounds are heard. No masses or tenderness. Extremities are intact. No cyanosis clubbing or edema. Skin is without rash or lesion. Neurologic examination is brief but nonfocal. - Labs CBC & Chem 7: 01/31/23 14:30 02/01/23 06:16 Labs: Abnormal Lab Results - Last 24 Hours (Table) 01/31/23 01/31/23 01/31/23 Range/Units 14:30 14:30 14:30 MCHC 30.4 L (31.0-37.0) g/dL RDW 16.0 H (11.5-15.5) % Potassium 3.1 L (3.5-5.1) mmol/L Chloride 94 L (98-107) mmol/L Carbon Dioxide 34 H (22-30) mmol/L BUN 40 H (9-20) mg/dL Glucose 174 H (74-99) mg/dL POC Glucose (mg/dL) (70-110) mg/dL Hemoglobin A1c 6.3 H (<=6.0) % Calcium 8.2 L (8.4-10.2) mg/dL Total Protein 6.0 L (6.3-8.2) g/dL Albumin 3.1 L (3.5-5.0) g/dL 01/31/23 02/01/23 Range/Units 20:16 11:27 MCHC (31.0-37.0) g/dL RDW (11.5-15.5) % Potassium (3.5-5.1) mmol/L Chloride (98-107) mmol/L Carbon Dioxide (22-30) mmol/L BUN (9-20) mg/dL Glucose (74-99) mg/dL POC Glucose (mg/dL) 142 H 131 H (70-110) mg/dL Hemoglobin A1c (<=6.0) % Calcium (8.4-10.2) mg/dL Total Protein (6.3-8.2) g/dL Albumin (3.5-5.0) g/dL Assessment and Plan Plan: Acute hypoxemic respiratory failure, currently on 3 L/m nasal cannula. Possibly multifactorial secondary to exacerbation of systolic congestive heart failure and suspected mild COPD exacerbation. Chest x-ray on arrival showed small bilateral pleural effusions with likely compressive atelectasis. Pneumonia is felt to be less likely. Echocardiogram is admission shows severe LV dysfunction with ejection fraction of 30% and severe mitral regurgitation. NT proBNP was elevated at 14,200. The patient remains on 3 L oxygen nasal cannula Coronary artery disease with stenting of the LAD and the patient is currently on a combination of aspirin and Effient Moderate to severe mitral regurgitation and dilated cardiomyopathy along with moderate tricuspid regurgitation and ejection fraction of 30% Shortness of breath secondary to above and there is also a component of COPD in addition Suspected bilateral lower extremity cellulitis, initiated on cefazolin. Lactic acidemia, improved. Benign essential hypertension. Reported history of myocardial infarction. Chronic ongoing tobacco dependence. Plan: Continue Lasix 40 mg every 12 hours Wean FiO2 as tolerated to maintain saturation above 90% Continue aspirin and Effient Continue Coreg Continue Aldactone Continue Entresto Continue bronchodilators We will follow
--- NOTE | 2023-02-01 14:19 | P.PN ---
Subjective Progress Note Date: 02/01/23 HISTORY OF PRESENT ILLNESS: The patient is a 67-year-old gentleman with history of CAD as well as history of smoking and hypertension and dyslipidemia who was admitted to the hospital with heart failure. He underwent further workup including troponin came in to be abnormal and also an echo showed cardiomyopathy was EF around 30-35%. He was also in heart failure. January 282022 The patient was seen and evaluated this morning. He is symptomatic and continues to have shortness of breath and he seems to be congested as well. He is on Lasix IV. Beside that he is on aspirin and beta chidi and statin. I'm going to add heparin in the light of elevated troponin. I informed the patient that he needs to undergo a heart catheterization to rule out severe CAD in the next 24 hours. January 292022 The patient was seen and evaluated this morning. He continues to have shortness of breath and he continues to be hypoxic on oxygen. He seems to be still in fluid overload as well. He cannot lay flat without being short of breath. He is on Lasix IV which I would suggest to continue. The echo showed severe cardiomyopathy as well as severe mitral regurgitation. The patient to undergo transesophageal echocardiogram and heart catheterization once his heart failure symptoms improved. Meanwhile continue the current medical regimen and continue heparin for additional 24 hours for a total of 48 hours. January 302022 The patient was seen and evaluated this morning. He still hypoxic requiring oxygen. He still wheezing on examination as well. He continues to be on Lasix IV and a has been diuresing well. He needs to undergo transesophageal echocardiogram and a heart catheterization to assess the mitral regurgitation and without severe CAD in the light of cardiomyopathy but with a regular that in the next 24 hours after he is a bit on the dry side. Meanwhile continue the current medical regimen including the current dose of Lasix IV and continue monitor the kidney function and electrolytes and also add lisinopril and Aldactone to the current medical regimen. January 312022 Patient was seen and evaluated this morning. He is not having any chest pain or chest discomfort. He still hypoxic on oxygen. He continues to be on IV Lasix. The plan is to pursue transesophageal echocardiogram and heart catheterization later on today. No blood work from the morning. He looks slightly pale on examination. We'll follow-up with CBC in the morning. Meanwhile continue the current medical regimen. 02/01/2023 Patient is status post cardiac catheterization with Dr. Torres with stenting of the proximal LAD. Patient also underwent WM revealing dilated LV with severely decreased LV systolic function around 30%, moderate mitral regurgitation, bicuspid aortic valve, mild aortic insufficiency, moderate tricuspid regurgitation, intact interatrial septum, no evidence of pericardial effusion. Patient examined this morning at the bedside. Patient denies any chest pain or pressure. He states he is not short of breath as long as he is wearing oxygen. However if he takes off his oxygen he becomes significantly short of breath. He remains on IV Lasix 40 mg every 12 hours. PHYSICAL EXAM: VITAL SIGNS: Reviewed. GENERAL: Well-developed in no acute distress. NECK: Supple. No JVD or thyromegaly LUNGS: Respirations even and unlabored. Lungs diminished with a few bibasilar crackles. HEART: Regular rate and rhythm. S1 and S2 heard. EXTREMITIES: Normal range of motion. No clubbing or cyanosis. Peripheral pulses intact. No lower extremity edema ASSESSMENT: Shortness of breath Acute on chronic heart failure with reduced ejection fraction Acute hypoxic respiratory failure Elevated troponins, status post cardiac catheterization with stenting to the LAD Acute COPD exacerbation Ischemic cardiomyopathy, ejection fraction 30-35% Valvular heart disease PLAN: Continue current cardiac medications Continue dual antiplatelet therapy with aspirin and Effient Continue IV Lasix 40 mg every 12 hours Daily weights, accurate I&O, monitor kidney function Further recommendations pending patient's course Nurse practitioner note has been reviewed by physician. Signing provider agrees with the documented findings, assessment, and plan of care. Objective - Vital Signs Vital signs: Vital Signs Temp 97.7 F 02/01/23 11:44 Pulse 71 02/01/23 11:44 Resp 20 02/01/23 11:44 BP 125/71 02/01/23 11:44 Pulse Ox 95 02/01/23 11:44 FiO2 Intake & Output 01/31/23 02/01/23 02/01/23 18:59 06:59 18:59 Intake Total 906 480 Output Total 700 1200 1265 Balance 206 -1200 -785 Weight 70.1 kg Intake: IV 190 Invasive Line 3 30 Invasive Line 4 10 Oral 716 480 Output: Urine 700 1200 1265 Other: Voiding Method Urinal Urinal Urinal - Labs CBC & Chem 7: 01/31/23 14:30 07/10/23 06:16 Labs: Abnormal Lab Results - Last 24 Hours (Table) 01/31/23 01/31/23 01/31/23 Range/Units 14:30 14:30 14:30 MCHC 30.4 L (31.0-37.0) g/dL RDW 16.0 H (11.5-15.5) % Potassium 3.1 L (3.5-5.1) mmol/L Chloride 94 L (98-107) mmol/L Carbon Dioxide 34 H (22-30) mmol/L BUN 40 H (9-20) mg/dL Glucose 174 H (74-99) mg/dL POC Glucose (mg/dL) (70-110) mg/dL Hemoglobin A1c 6.3 H (<=6.0) % Calcium 8.2 L (8.4-10.2) mg/dL Total Protein 6.0 L (6.3-8.2) g/dL Albumin 3.1 L (3.5-5.0) g/dL 01/31/23 02/01/23 Range/Units 20:16 11:27 MCHC (31.0-37.0) g/dL RDW (11.5-15.5) % Potassium (3.5-5.1) mmol/L Chloride (98-107) mmol/L Carbon Dioxide (22-30) mmol/L BUN (9-20) mg/dL Glucose (74-99) mg/dL POC Glucose (mg/dL) 142 H 131 H (70-110) mg/dL Hemoglobin A1c (<=6.0) % Calcium (8.4-10.2) mg/dL Total Protein (6.3-8.2) g/dL Albumin (3.5-5.0) g/dL
[2023-02-01 16:28] LABS: Glucose,Whole Blood 116 mg/dL (70-110)
[2023-02-01 16:28] LABS: African American GFR (CKD) >90 (>60 ml/min/1.73 sqM); Anion Gap 4 mmol/L; Blood Urea Nitrogen 39 mg/dL (9-20); Calcium 8.3 mg/dL (8.4-10.2); Carbon Dioxide 37 mmol/L (22-30); Chloride 96 mmol/L (98-107); Glucose 107 mg/dL (74-99); Non-African American GFR(CKD) 80 (>60 ml/min/1.73 sqM); Potassium 4.1 mmol/L (3.5-5.1); Sodium 137 mmol/L (137-145)
[2023-02-01 20:08] LABS: Glucose,Whole Blood 157 mg/dL (70-110)
[2023-02-01] MEDS: ATORVASTATIN 80 MG TAB PO SCH (21:27)
[2023-02-01] MEDS: INSULIN DETEMIR (LEVEMIR) 100 UNIT/ML SYR SQ SCH (21:28)
[2023-02-02] MEDS: ALPRAZolam 0.25 MG TAB PO PRN ×2 (03:07→20:28)
[2023-02-02 06:13] LABS: Glucose,Whole Blood 85 mg/dL (70-110)
[2023-02-02] MEDS: INSULIN ASPART (NovoLOG) 100 UNIT/ML VIAL SQ SCH ×4 (06:15→20:22)
[2023-02-02] MEDS: PANTOPRAZOLE 40 MG TABLET PO SCH (06:48)
[2023-02-02] MEDS: carvediloL 6.25 MG TAB PO SCH ×2 (06:48→18:12)
[2023-02-02] MEDS: IPRATROPIUM-ALBUTEROL 3 ML NEB INHALATION SCH ×4 (08:31→19:47)
[2023-02-02] MEDS: SYMBICORT 160-4.5 MCG INHALER INHALATION SCH ×2 (08:31→19:46)
[2023-02-02] MEDS: ACETAMINOPHEN TAB 500 MG TAB PO SCH ×2 (09:36→20:24)
[2023-02-02] MEDS: NICOTINE 21MG/24HR PATCH TRANSDERM SCH (09:36)
[2023-02-02] MEDS: FUROSEMIDE 10 MG/ML 4 ML VIAL IV SCH (09:36)
[2023-02-02] MEDS: POTASSIUM CHLORIDE ER 10 MEQ TAB.ER.PRT PO SCH (09:36)
[2023-02-02] MEDS: SACUBITRIL/VALSARTAN 24 MG-26 MG TABLET PO SCH ×2 (09:37→20:25)
[2023-02-02] MEDS: PRASUGREL 10 MG TAB PO SCH (09:37)
[2023-02-02] MEDS: DAPAGLIFLOZIN PROPANEDIOL 10 MG TABLET PO SCH (09:37)
[2023-02-02] MEDS: ASPIRIN 81 MG PO SCH (09:37)
[2023-02-02] MEDS: SPIRONOLACTONE 25 MG TAB PO SCH (09:37)
[2023-02-02 11:53] LABS: Glucose,Whole Blood 87 mg/dL (70-110)
--- NOTE | 2023-02-02 13:49 | P.PN ---
Subjective Progress Note Date: 02/02/23 I am seeing this patient in new consultation today 01/28/2023 for new onset congestive heart failure and likely an exacerbation of COPD. The patient is a 67-year-old male with past medical history hypertension, remote myocardial infarction, and current ongoing tobacco dependence. He smokes approximately one pack per day. Patient has not been to a primary care provider in over 8 years. He states that he does have high blood pressure, but is not on any antihypertensives. He denies ever being diagnosed with COPD, but states "that he probably has it". He does take an cysh-cya-[id number] Primatene inhaler on an as-needed basis. He has been using the inhaler more frequently over the last 2 weeks. The patient presented to the emergency room on January 26 complaining of increased lower extremity swelling and exertional shortness of breath. Denies any chest pain, heart palpitations, syncope, orthopnea. He also denies any fever, chills, myalgias, cough, hemoptysis. Patient is currently sitting up in bed, on 2 L/m nasal cannula, in no acute distress. He is wheezy on auscultation. He has been started on a combination of IV Solu-Medrol and bronchodilators. Chest x-ray on arrival showed small bilateral pleural effusions with likely compressive atelectasis. Pneumonia is felt to be less likely. Echocardiogram is admission shows severe LV dysfunction with ejection fraction of 30% and severe mitral regurgitation. His bilateral lower extremities are extremely swollen. He states that they have improved since admission. There is bilateral areas of erythema, possible cellulitis. The pat ient was started on IV cefazolin. He was also started on Lasix 40 mg twice a day. CBC and BMP on arrival were unremarkable. Troponins were mildly elevated at 0.036 and 0.053. NT proBNP was elevated at 14,200. Lactic acid level was elevated at 4.9 and is down to 1.9. Apparently, there was concern about the patient's mentation; and an ABG was done last night, showing a pO2 of 59, pCO2 of 48, pH of 7.42. The hypercapnia is likely chronic and is compensated. Patient is fully alert and oriented on my evaluation. Patient appears hemodynamically stable. The patient is seen today 01/29/2023 in follow-up on the selective care unit. He is currently resting comfortably in bed. Awake and alert in no acute distress. He is maintaining O2 saturations in the 90s on 3 L/m per nasal cannula. He is currently on a heparin drip. Plan for cardiac catheterization once stabilized. White count 13.3. Hemoglobin 14.5. Platelets 196. INR 1.1. Blood glucose 214. He is currently on DuoNeb inhalations, Symbicort, IV Solu- Medrol. NicoDerm patch in place. Progress note dated 01/30/2023. The patient is seen today in room 382. Continues on 3 L of oxygen. According to his nurse, the patient is scheduled for a cardiac catheterization, and transesophageal echocardiogram, tomorrow. Patient is clinically very stable. Lab data today includes a white count 11.2, with a normal hemoglobin, hem atocrit, and platelet count. PTT is 176. Heparin has been discontinued. Sodium 140, potassium 3.3, chlorides 98, CO2 34, BUN 40, and creatinine 1.04. Progress note dated 01/31/2023. 67-year-old male seen today in room 382. The patient continues on oxygen at 3 L. No IV fluids. The patient is going to go to the catheterization laboratory, for cardiac catheterization today, and also a transesophageal echocardiogram. No new labs today other than a glucose of 124. No new chest x-ray today. Clinically, the patient appears to be stable. On 02/01/2023 on seeing the patient for a follow-up. The patient presented with acute hypoxic respiratory failure, CHF, systolic heart failure and mitral valve regurgitation. Based on that, the patient underwent a WM yesterday which confirmed presence of a dilated LV with severely decreased LV function with an ejection fraction of around 30%. The mitral valve leaflets were intact and there was moderate degree of regurgitation related to his cardiomyopathy. Aortic valve was bicuspid. There was moderate tricuspid regurgitation. The patient also underwent a cardiac catheterization yesterday and the procedure showed left ventricular end-diastolic pressure of 28. There was indeterminate or intermediate disease involving the proximal LAD. The patient was given a stent in that lesion as this was felt to be significant. He was placed on a combination of aspirin and Effient. He is also on Lipitor 80 mg by mouth daily, Coreg 6.25 mg by mouth twice a day, and Aldactone and he was also started on Entresto at a dose of mg. He is also on Lasix 40 mg IV every 12 hours. Is currently on 3 L O2 nasal cannula. Chest x-ray findings are consistent with CHF and pulmonary edema and bilateral pleural effusion slightly worse on the right. On today's evaluation of 02/02/2023, the patient is resting comfortably in bed and the patient is currently off liters of oxygen by nasal cannula. The patient has CHF with ejection fraction of 30% in addition to moderate degree of mitral regurgitation. The patient has a aortic valve this is bicuspid. The patient also had stenting of the LAD. His CHF is being optimize further as the patient remains on Lasix 40 mg every 12 hours. The patient remains on a combination of aspirin and Plavix. No new complaints otherwise for now. BNP level remains elevated at 4580. No fever. No chills. No other significant events over the past 24 hours. EKG from today showing sinus rhythm with voltage criteria for LVH. Objective - Vital Signs Vital signs: Vital Signs Temp 97.4 F L 02/02/23 09:00 Pulse 71 02/02/23 09:00 Resp 18 02/02/23 09:00 BP 137/72 02/02/23 09:00 Pulse Ox 91 L 02/02/23 09:00 FiO2 Intake & Output 02/01/23 02/02/23 02/02/23 18:59 06:59 18:59 Intake Total 720 220 240 Output Total 1840 1175 425 Balance -1120 -955 -185 Weight 67.7 kg Intake: Intake, IV Titration 220 Amount Sodium Chloride 0.9% 250 120 ml @ 0 mls/hr IV .[facility] Rx#:[id number] ceFAZolin 2 gm In Sodium 100 Chloride 0.9% 50 ml @ 100 mls/hr IVPB Q8H [facility] Rx#: [id number] Oral 720 240 Output: Urine 1840 1175 425 Other: Voiding Method Urinal Urinal - Exam No acute distress, oriented 3. Currently on 3 L. No conversational dyspnea or use of accessory muscles. HEENT examination is grossly unremarkable. Mucous membranes are moist. No oral lesions. Neck supple. Full range of motion. No adenopathy thyromegaly or neck vein distention. Cardiovascular examination reveals regular rhythm rate. S1-S2 normal. No S3 or S4. No discernible murmur noted. Heart sounds are distant. Lungs reveal mostly clear breath sounds. Minimal scattered basilar crackles. No rhonchi or wheezes. Breath sounds are equal bilaterally. Saturations are 95% on 3 L. Abdomen soft bowel sounds are heard. No masses or tenderness. Extremities are intact. No cyanosis clubbing or edema. Skin is without rash or lesion. Neurologic examination is brief but nonfocal. - Labs CBC & Chem 7: 01/31/23 14:30 02/01/23 15:14 Labs: Abnormal Lab Results - Last 24 Hours (Table) 02/01/23 02/01/23 02/01/23 Range/Units 11:27 15:14 16:26 Chloride 96 L (98-107) mmol/L Carbon Dioxide 37 H (22-30) mmol/L BUN 39 H (9-20) mg/dL Glucose 107 H (74-99) mg/dL POC Glucose (mg/dL) 131 H 116 H (70-110) mg/dL Calcium 8.3 L (8.4-10.2) mg/dL 02/01/23 Range/Units 20:06 Chloride (98-107) mmol/L Carbon Dioxide (22-30) mmol/L BUN (9-20) mg/dL Glucose (74-99) mg/dL POC Glucose (mg/dL) 157 H (70-110) mg/dL Calcium (8.4-10.2) mg/dL Assessment and Plan Plan: Acute hypoxemic respiratory failure, currently on 3 L/m nasal cannula. Possibly multifactorial secondary to exacerbation of systolic congestive heart failure and suspected mild COPD exacerbation. Chest x-ray on arrival showed small bilateral pleural effusions with likely compressive atelectasis. Pneumonia is felt to be less likely. Echocardiogram is admission shows severe LV dysfunction with ejection fraction of 30% and severe mitral regurgitation. NT proBNP was elevated at 14,200. The patient remains on 3 L oxygen nasal cannula Coronary artery disease with stenting of the LAD and the patient is currently on a combination of aspirin and Effient Moderate to severe mitral regurgitation and dilated cardiomyopathy along with moderate tricuspid regurgitation and ejection fraction of 30% Shortness of breath secondary to above and there is also a component of COPD in addition Suspected bilateral lower extremity cellulitis, initiated on cefazolin. Lactic acidemia, improved. Benign essential hypertension. Reported history of myocardial infarction. Chronic ongoing tobacco dependence. Plan: Continue Lasix 40 mg every 12 hours ProBNP is elevated and the patient will benefit from ongoing diuretic therapy Wean FiO2 as tolerated to maintain saturation above 90%, currently on 3 L of oxygen by nasal cannula ProBNP level is improving Continue aspirin and Effient Continue Coreg Continue Aldactone Continue Entresto Continue bronchodilators We will follow
--- NOTE | 2023-02-02 13:51 | P.PN ---
Subjective Progress Note Date: 02/02/23 HISTORY OF PRESENT ILLNESS: The patient is a 67-year-old gentleman with history of CAD as well as history of smoking and hypertension and dyslipidemia who was admitted to the hospital with heart failure. He underwent further workup including troponin came in to be abnormal and also an echo showed cardiomyopathy was EF around 30-35%. He was also in heart failure. January 282022 The patient was seen and evaluated this morning. He is symptomatic and continues to have shortness of breath and he seems to be congested as well. He is on Lasix IV. Beside that he is on aspirin and beta chidi and statin. I'm going to add heparin in the light of elevated troponin. I informed the patient that he needs to undergo a heart catheterization to rule out severe CAD in the next 24 hours. January 292022 The patient was seen and evaluated this morning. He continues to have shortness of breath and he continues to be hypoxic on oxygen. He seems to be still in fluid overload as well. He cannot lay flat without being short of breath. He is on Lasix IV which I would suggest to continue. The echo showed severe cardiomyopathy as well as severe mitral regurgitation. The patient to undergo transesophageal echocardiogram and heart catheterization once his heart failure symptoms improved. Meanwhile continue the current medical regimen and continue heparin for additional 24 hours for a total of 48 hours. January 302022 The patient was seen and evaluated this morning. He still hypoxic requiring oxygen. He still wheezing on examination as well. He continues to be on Lasix IV and a has been diuresing well. He needs to undergo transesophageal echocardiogram and a heart catheterization to assess the mitral regurgitation and without severe CAD in the light of cardiomyopathy but with a regular that in the next 24 hours after he is a bit on the dry side. Meanwhile continue the current medical regimen including the current dose of Lasix IV and continue monitor the kidney function and electrolytes and also add lisinopril and Aldactone to the current medical regimen. January 312022 Patient was seen and evaluated this morning. He is not having any chest pain or chest discomfort. He still hypoxic on oxygen. He continues to be on IV Lasix. The plan is to pursue transesophageal echocardiogram and heart catheterization later on today. No blood work from the morning. He looks slightly pale on examination. We'll follow-up with CBC in the morning. Meanwhile continue the current medical regimen. 02/01/2023 Patient is status post cardiac catheterization with Dr. Torres with stenting of the proximal LAD. Patient also underwent WM revealing dilated LV with severely decreased LV systolic function around 30%, moderate mitral regurgitation, bicuspid aortic valve, mild aortic insufficiency, moderate tricuspid regurgitation, intact interatrial septum, no evidence of pericardial effusion. Patient examined this morning at the bedside. Patient denies any chest pain or pressure. He states he is not short of breath as long as he is wearing oxygen. However if he takes off his oxygen he becomes significantly short of breath. He remains on IV Lasix 40 mg every 12 hours. 02/02/2023 Patient examined this morning at the bedside. Patient denies chest pain or pressure. He currently denies shortness of breath at the time of examination. He reports if he takes off his oxygen he begins to feel short of breath. Patient has not been out of bed yet. His vital signs are stable. 02/03/2023 Patient examined this afternoon. Patient is sitting at the side of the bed eating lunch. He denies chest pain or pressure. He reports improvement in his shortness of breath compared to yesterday. Vital signs are stable. PHYSICAL EXAM: VITAL SIGNS: Reviewed. GENERAL: Well-developed in no acute distress. NECK: Supple. No JVD or thyromegaly LUNGS: Respirations even and unlabored. Lungs diminished. HEART: Regular rate and rhythm. S1 and S2 heard. EXTREMITIES: Normal range of motion. No clubbing or cyanosis. Peripheral pulses intact. No lower extremity edema ASSESSMENT: Shortness of breath Acute on chronic heart failure with reduced ejection fraction Acute hypoxic respiratory failure Elevated troponins, status post cardiac catheterization with stenting to the LAD Acute COPD exacerbation Ischemic cardiomyopathy, ejection fraction 30-35% Valvular heart disease PLAN: Continue current cardiac medications Continue dual antiplatelet therapy with aspirin and Effient Continue oral diuretics Patient is stable for discharge home today from a cardiac standpoint We will sign off. Please reconsult if needed. Nurse practitioner note has been reviewed by physician. Signing provider agrees with the documented findings, assessment, and plan of care. Objective - Vital Signs Vital signs: Vital Signs Temp 97.6 F 02/02/23 13:00 Pulse 75 02/02/23 13:00 Resp 18 02/02/23 13:00 BP 128/77 02/02/23 13:00 Pulse Ox 91 L 02/02/23 13:00 FiO2 Intake & Output 07/10/23 07/11/23 07/11/23 18:59 06:59 18:59 Intake Total 720 220 240 Output Total 1840 1175 425 Balance -1120 -955 -185 Weight 67.7 kg Intake: Intake, IV Titration 220 Amount Sodium Chloride 0.9% 250 120 ml @ 0 mls/hr IV .[facility] Rx#:[id number] ceFAZolin 2 gm In Sodium 100 Chloride 0.9% 50 ml @ 100 mls/hr IVPB Q8H [facility] Rx#: [id number] Oral 720 240 Output: Urine 1840 1171 425 Other: Voiding Method Urinal Urinal - Labs CBC & Chem 7: 01/31/23 14:30 02/03/23 07:53 Labs: Abnormal Lab Results - Last 24 Hours (Table) 02/01/23 02/01/23 02/01/23 Range/Units 15:14 16:26 20:06 Chloride 96 L (98-107) mmol/L Carbon Dioxide 37 H (22-30) mmol/L BUN 39 H (9-20) mg/dL Glucose 107 H (74-99) mg/dL POC Glucose (mg/dL) 116 H 157 H (70-110) mg/dL Calcium 8.3 L (8.4-10.2) mg/dL
[2023-02-02] MEDS: FUROSEMIDE 40 MG TAB PO SCH (15:24)
[2023-02-02 15:39] VITALS: BMI 22.0
[2023-02-02 16:53] LABS: Glucose,Whole Blood 119 mg/dL (70-110)
[2023-02-02 20:14] LABS: Glucose,Whole Blood 125 mg/dL (70-110)
[2023-02-02] MEDS: ATORVASTATIN 80 MG TAB PO SCH (20:25)
[2023-02-02] MEDS: INSULIN DETEMIR (LEVEMIR) 100 UNIT/ML SYR SQ SCH (21:27)
--- NOTE | 2023-02-03 00:51 | PN ---
PROGRESS NOTE DATE OF SERVICE: 02/02/2023 CHIEF COMPLAINT: Congestive heart failure, COPD and coronary artery disease. HISTORY OF PRESENT ILLNESS: This gentleman is stable and doing well. Yesterday, his stent was placed. He denies any chest pain and he has not had any difficulties with the extremities. PHYSICAL EXAMINATION: CHEST: Breath sounds are heard bilaterally. CARDIAC: Normal sinus rhythm. ABDOMEN: Soft, nontender. IMPRESSION: 1. Acute heart failure with reduced ejection fraction. 2. Chronic obstructive pulmonary disease. 3. Coronary artery disease. PLAN: Increase activity and diet and discharge when cleared by Cardiology. MMODL / IJN: [id number] /
[2023-02-03 06:16] LABS: Glucose,Whole Blood 103 mg/dL (70-110)
[2023-02-03] MEDS: INSULIN ASPART (NovoLOG) 100 UNIT/ML VIAL SQ SCH ×4 (06:22→20:50)
[2023-02-03] MEDS: PANTOPRAZOLE 40 MG TABLET PO SCH (06:25)
[2023-02-03] MEDS: carvediloL 6.25 MG TAB PO SCH ×2 (06:25→16:57)
[2023-02-03] MEDS: SYMBICORT 160-4.5 MCG INHALER INHALATION SCH ×2 (08:28→21:12)
[2023-02-03] MEDS: IPRATROPIUM-ALBUTEROL 3 ML NEB INHALATION SCH ×4 (08:29→21:12)
[2023-02-03 08:36] LABS: African American GFR (CKD) >90 (>60 ml/min/1.73 sqM); Anion Gap 4 mmol/L; Blood Urea Nitrogen 33 mg/dL (9-20); Carbon Dioxide 32 mmol/L (22-30); Chloride 104 mmol/L (98-107); Glucose 94 mg/dL (74-99); Non-African American GFR(CKD) 90 (>60 ml/min/1.73 sqM); Potassium 4.5 mmol/L (3.5-5.1); Sodium 140 mmol/L (137-145)
[2023-02-03] MEDS: ACETAMINOPHEN TAB 500 MG TAB PO SCH ×2 (10:14→20:49)
[2023-02-03] MEDS: SPIRONOLACTONE 25 MG TAB PO SCH (10:14)
[2023-02-03] MEDS: SACUBITRIL/VALSARTAN 24 MG-26 MG TABLET PO SCH ×2 (10:16→20:50)
[2023-02-03] MEDS: ASPIRIN 81 MG PO SCH (10:16)
[2023-02-03] MEDS: PRASUGREL 10 MG TAB PO SCH (10:16)
[2023-02-03] MEDS: FUROSEMIDE 40 MG TAB PO SCH ×2 (10:16→16:57)
[2023-02-03] MEDS: POTASSIUM CHLORIDE ER 10 MEQ TAB.ER.PRT PO SCH (10:16)
[2023-02-03] MEDS: NICOTINE 21MG/24HR PATCH TRANSDERM SCH (10:16)
[2023-02-03] MEDS: DAPAGLIFLOZIN PROPANEDIOL 10 MG TABLET PO SCH (10:16)
[2023-02-03 11:53] LABS: Glucose,Whole Blood 141 mg/dL (70-110)
--- NOTE | 2023-02-03 15:01 | P.PN ---
Subjective Progress Note Date: 02/03/23 I am seeing this patient in new consultation today 01/28/2023 for new onset congestive heart failure and likely an exacerbation of COPD. The patient is a 67-year-old male with past medical history hypertension, remote myocardial infarction, and current ongoing tobacco dependence. He smokes approximately one pack per day. Patient has not been to a primary care provider in over 8 years. He states that he does have high blood pressure, but is not on any antihypertensives. He denies ever being diagnosed with COPD, but states "that he probably has it". He does take an [id number] Primatene inhaler on an as-needed basis. He has been using the inhaler more frequently over the last 2 weeks. The patient presented to the emergency room on January 26 complaining of increased lower extremity swelling and exertional shortness of breath. Denies any chest pain, heart palpitations, syncope, orthopnea. He also denies any fever, chills, myalgias, cough, hemoptysis. Patient is currently sitting up in bed, on 2 L/m nasal cannula, in no acute distress. He is wheezy on auscultation. He has been started on a combination of IV Solu-Medrol and bronchodilators. Chest x-ray on arrival showed small bilateral pleural effusions with likely compressive atelectasis. Pneumonia is felt to be less likely. Echocardiogram is admission shows severe LV dysfunction with ejection fraction of 30% and severe mitral regurgitation. His bilateral lower extremities are extremely swollen. He states that they have improved since admission. There is bilateral areas of erythema, possible cellulitis. The pat ient was started on IV cefazolin. He was also started on Lasix 40 mg twice a day. CBC and BMP on arrival were unremarkable. Troponins were mildly elevated at 0.036 and 0.053. NT proBNP was elevated at 14,200. Lactic acid level was elevated at 4.9 and is down to 1.9. Apparently, there was concern about the patient's mentation; and an ABG was done last night, showing a pO2 of 59, pCO2 of 48, pH of 7.42. The hypercapnia is likely chronic and is compensated. Patient is fully alert and oriented on my evaluation. Patient appears hemodynamically stable. The patient is seen today 01/29/2023 in follow-up on the selective care unit. He is currently resting comfortably in bed. Awake and alert in no acute distress. He is maintaining O2 saturations in the 90s on 3 L/m per nasal cannula. He is currently on a heparin drip. Plan for cardiac catheterization once stabilized. White count 13.3. Hemoglobin 14.5. Platelets 196. INR 1.1. Blood glucose 214. He is currently on DuoNeb inhalations, Symbicort, IV Solu- Medrol. NicoDerm patch in place. Progress note dated 01/30/2023. The patient is seen today in room 382. Continues on 3 L of oxygen. According to his nurse, the patient is scheduled for a cardiac catheterization, and transesophageal echocardiogram, tomorrow. Patient is clinically very stable. Lab data today includes a white count 11.2, with a normal hemoglobin, hem atocrit, and platelet count. PTT is 176. Heparin has been discontinued. Sodium 140, potassium 3.3, chlorides 98, CO2 34, BUN 40, and creatinine 1.04. Progress note dated 01/31/2023. 67-year-old male seen today in room 382. The patient continues on oxygen at 3 L. No IV fluids. The patient is going to go to the catheterization laboratory, for cardiac catheterization today, and also a transesophageal echocardiogram. No new labs today other than a glucose of 124. No new chest x-ray today. Clinically, the patient appears to be stable. On 02/01/2023 on seeing the patient for a follow-up. The patient presented with acute hypoxic respiratory failure, CHF, systolic heart failure and mitral valve regurgitation. Based on that, the patient underwent a WM yesterday which confirmed presence of a dilated LV with severely decreased LV function with an ejection fraction of around 30%. The mitral valve leaflets were intact and there was moderate degree of regurgitation related to his cardiomyopathy. Aortic valve was bicuspid. There was moderate tricuspid regurgitation. The patient also underwent a cardiac catheterization yesterday and the procedure showed left ventricular end-diastolic pressure of 28. There was indeterminate or intermediate disease involving the proximal LAD. The patient was given a stent in that lesion as this was felt to be significant. He was placed on a combination of aspirin and Effient. He is also on Lipitor 80 mg by mouth daily, Coreg 6.25 mg by mouth twice a day, and Aldactone and he was also started on Entresto at a dose of mg. He is also on Lasix 40 mg IV every 12 hours. Is currently on 3 L O2 nasal cannula. Chest x-ray findings are consistent with CHF and pulmonary edema and bilateral pleural effusion slightly worse on the right. On today's evaluation of 02/02/2023, the patient is resting comfortably in bed and the patient is currently off liters of oxygen by nasal cannula. The patient has CHF with ejection fraction of 30% in addition to moderate degree of mitral regurgitation. The patient has a aortic valve this is bicuspid. The patient also had stenting of the LAD. His CHF is being optimize further as the patient remains on Lasix 40 mg every 12 hours. The patient remains on a combination of aspirin and Plavix. No new complaints otherwise for now. BNP level remains elevated at 4580. No fever. No chills. No other significant events over the past 24 hours. EKG from today showing sinus rhythm with voltage criteria for LVH. On today's evaluation of 02/03/2023, the patient is quite stable without any ch est pain. He continues to diurese with Lasix and this was switched to 40 mg of Lasix twice a day. He is on Symbicort. Is on albuterol neb on the clock and is also on a combination of aspirin and Effient. His CHF is well optimized at this point in time. The patient remains on 3 L of oxygen by nasal cannula with a pulse ox of 94%. Hemodynamically stable. The patient has a sodium level of 140, BUN is at 33 with a creatinine of 0.8. Glucose at 141. ProBNP level has been essentially declining. No fever or chills. Objective - Vital Signs Vital signs: Vital Signs Temp 98.2 F 02/03/23 10:10 Pulse 78 02/03/23 11:47 Resp 18 02/03/23 11:47 BP 116/70 02/03/23 10:10 Pulse Ox 93 L 02/03/23 10:10 FiO2 Intake & Output 02/02/23 02/03/23 02/03/23 18:59 06:59 18:59 Intake Total 580 662 120 Output Total 1275 450 Balance -695 212 120 Weight 67.7 kg Intake: Intake, IV Titration 100 100 Amount ceFAZolin 2 gm In Sodium 100 100 Chloride 0.9% 50 ml @ 100 mls/hr IVPB Q8H SUNNI Rx#: [id number] Oral 480 562 120 Output: Urine 1275 450 Other: Voiding Method Urinal Urinal Urinal # Voids 2 - Exam No acute distress, oriented 3. Currently on 3 L. No conversational dyspnea or use of accessory muscles. HEENT examination is grossly unremarkable. Mucous membranes are moist. No oral lesions. Neck supple. Full range of motion. No adenopathy thyromegaly or neck vein distention. Cardiovascular examination reveals regular rhythm rate. S1-S2 normal. No S3 or S4. No discernible murmur noted. Heart sounds are distant. Lungs reveal mostly clear breath sounds. Minimal scattered basilar crackles. No rhonchi or wheezes. Breath sounds are equal bilaterally. Saturations are 95% on 3 L. Abdomen soft bowel sounds are heard. No masses or tenderness. Extremities are intact. No cyanosis clubbing or edema. Skin is without rash or lesion. Neurologic examination is brief but nonfocal. - Labs CBC & Chem 7: 01/31/23 14:30 02/03/23 07:53 Labs: Abnormal Lab Results - Last 24 Hours (Table) 02/02/23 02/02/23 02/03/23 Range/Units 16:41 20:12 07:53 Carbon Dioxide 32 H (22-30) mmol/L BUN 33 H (9-20) mg/dL POC Glucose (mg/dL) 119 H 125 H (70-110) mg/dL Calcium 8.0 L (8.4-10.2) mg/dL 02/03/23 Range/Units 11:52 Carbon Dioxide (22-30) mmol/L BUN (9-20) mg/dL POC Glucose (mg/dL) 141 H (70-110) mg/dL Calcium (8.4-10.2) mg/dL Assessment and Plan Plan: Acute hypoxemic respiratory failure, currently on 3 L/m nasal cannula. Possibly multifactorial secondary to exacerbation of systolic congestive heart failure and suspected mild COPD exacerbation. Chest x-ray on arrival showed small bilateral pleural effusions with likely compressive atelectasis. Pneumonia is felt to be less likely. Echocardiogram is admission shows severe LV dysfunction with ejection fraction of 30% and severe mitral regurgitation. NT proBNP was elevated at 14,200. The patient remains on 3 L oxygen nasal cannula and the patient remains clinically stable with stable oxygenation. Coronary artery disease with stenting of the LAD and the patient is currently on a combination of aspirin and Effient Moderate to severe mitral regurgitation and dilated cardiomyopathy along with moderate tricuspid regurgitation and ejection fraction of 30% Shortness of breath secondary to above and there is also a component of COPD in addition Suspected bilateral lower extremity cellulitis, initiated on cefazolin. Lactic acidemia, improved. Benign essential hypertension. Reported history of myocardial infarction. Chronic ongoing tobacco dependence. COPD Plan: Continue Lasix 40 mg by mouth on a daily basis twice a day ProBNP is elevated and the patient will benefit from ongoing diuretic therapy, CHF is further optimized Wean FiO2 as tolerated to maintain saturation above 90%, currently on 3 L of oxygen by nasal cannula Will likely need home O2 ProBNP level is improving Continue aspirin and Effient Continue Coreg Continue Aldactone Continue Entresto Continue bronchodilators, and Symbicort as maintenance We will follow
[2023-02-03 16:39] LABS: Glucose,Whole Blood 108 mg/dL (70-110)
[2023-02-03] MEDS: polyethylene glycoL 3350 17 GM POWD.PACK PO SCH (16:57)
[2023-02-03 20:21] LABS: Glucose,Whole Blood 174 mg/dL (70-110)
[2023-02-03] MEDS: ATORVASTATIN 80 MG TAB PO SCH (20:49)
[2023-02-03] MEDS: INSULIN DETEMIR (LEVEMIR) 100 UNIT/ML SYR SQ SCH (20:50)
--- NOTE | 2023-02-04 03:32 | PN ---
PROGRESS NOTE DATE OF SERVICE: 02/03/2023 CHIEF COMPLAINT: Congestive heart failure and coronary artery disease. HISTORY OF PRESENT ILLNESS: This gentleman is doing well and he is able to go home, but now it sounds like he maybe going to [facility] for rehab. REVIEW OF SYSTEMS: He denies any significant shortness of breath or chest pain. He is on nasal O2 and if he takes it off, he does become quite dyspneic. PHYSICAL EXAMINATION: LUNGS: Breath sounds are diminished. There are scattered rales and rhonchi. CARDIAC: Normal sinus rhythm. ABDOMEN: Soft, nontender. IMPRESSION: 1. Acute congestive heart failure. 2. Atherosclerotic cardiomyopathy. 3. Coronary artery disease. 4. Chronic obstructive pulmonary disease. PLAN: He can be discharged to [facility] whenever the arrangements are made. MMODL / IJN: [id number] /
[2023-02-04 06:17] LABS: Glucose,Whole Blood 167 mg/dL (70-110)
[2023-02-04] MEDS: PANTOPRAZOLE 40 MG TABLET PO SCH (06:27)
[2023-02-04] MEDS: INSULIN ASPART (NovoLOG) 100 UNIT/ML VIAL SQ SCH ×2 (06:27→12:20)
[2023-02-04] MEDS: carvediloL 6.25 MG TAB PO SCH (06:27)
[2023-02-04 08:32] VITALS: BP 96/66; RESP 16; TEMP 97.4
[2023-02-04] MEDS: polyethylene glycoL 3350 17 GM POWD.PACK PO SCH (08:34)
[2023-02-04] MEDS: ASPIRIN 81 MG PO SCH (08:34)
[2023-02-04] MEDS: FUROSEMIDE 40 MG TAB PO SCH (08:34)
[2023-02-04] MEDS: DAPAGLIFLOZIN PROPANEDIOL 10 MG TABLET PO SCH (08:34)
[2023-02-04] MEDS: SPIRONOLACTONE 25 MG TAB PO SCH (08:34)
[2023-02-04] MEDS: POTASSIUM CHLORIDE ER 10 MEQ TAB.ER.PRT PO SCH (08:34)
[2023-02-04] MEDS: NICOTINE 21MG/24HR PATCH TRANSDERM SCH (08:34)
[2023-02-04] MEDS: PRASUGREL 10 MG TAB PO SCH (08:34)
[2023-02-04] MEDS: ACETAMINOPHEN TAB 500 MG TAB PO SCH ×2 (08:41→09:41)
[2023-02-04] MEDS: IPRATROPIUM-ALBUTEROL 3 ML NEB INHALATION SCH ×2 (08:47→11:58)
[2023-02-04] MEDS: SYMBICORT 160-4.5 MCG INHALER INHALATION SCH (08:47)
[2023-02-04 09:03] VITALS: PULSE 77
[2023-02-04] MEDS: SACUBITRIL/VALSARTAN 24 MG-26 MG TABLET PO SCH (09:41)
--- NOTE | 2023-02-04 11:59 | DS ---
DISCHARGE SUMMARY CHIEF COMPLAINT: Shortness of breath. HISTORY OF PRESENT ILLNESS AND PHYSICAL EXAMINATION: Details of this man's history and physical can be found in the initial workup. LABORATORY STUDIES: While he was in the hospital, he had laboratory studies, details of which can be found in the laboratory section of his chart. COURSE IN THE HOSPITAL: After admission, he was placed on bedrest and started on intravenous fluids and nasal O2. Initially, it was felt that his problem might be more related to COPD than anything else, but his BNP was elevated and he was found also to have an element of congestive heart failure. He was started on diuretics and seen and followed by Cardiology. Eventually, he was taken to the [facility] and he was found to have a narrowed coronary artery, for which he received a stent. Postoperatively, he did well and it was determined that he would go to a [facility] for rehabilitation. FINAL DIAGNOSES: 1. Acute respiratory failure. 2. Exacerbation of chronic obstructive pulmonary disease. 3. Acute congestive heart failure. 4. Coronary artery disease. 5. Atherosclerotic cardiomyopathy. OPERATIONS: Cardiac cath with stent placement. CONSULTATIONS: Pulmonology and Cardiology. MMODL / IJN: [id number] /
[2023-02-04 12:02] LABS: Glucose,Whole Blood 84 mg/dL (70-110)
== END 2023-02-04 13:55 | DRG 246 ==
LOC: EC 20:41 → 3SCARD 01-27 00:57
PROVIDERS: ADMIT Family Medicine; ATTEND Family Medicine
PROC: 027034Z Dilation of Coronary Artery, One Artery with Drug-eluting Intraluminal Device, Percutaneous Approach (ICD-10-PCS; principal; 2023-01-31 09:58)
PROC: B24BZZ4 Ultrasonography of Heart with Aorta, Transesophageal (ICD-10-PCS; 2023-01-31 13:30)
PROC: 4A023N7 Measurement of Cardiac Sampling and Pressure, Left Heart, Percutaneous Approach (ICD-10-PCS; 2023-01-31 13:30)
PROC: B2111ZZ Fluoroscopy of Multiple Coronary Arteries using Low Osmolar Contrast (ICD-10-PCS; 2023-01-31 13:30)
DX: I11.0 Hypertensive heart disease with heart failure (principal); I21.4 Non-ST elevation (NSTEMI) myocardial infarction; J96.01 Acute respiratory failure with hypoxia; I50.23 Acute on chronic systolic (congestive) heart failure; J44.1 Chronic obstructive pulmonary disease with (acute) exacerbation; J98.11 Atelectasis; L03.90 Cellulitis, unspecified; J96.12 Chronic respiratory failure with hypercapnia; E78.5 Hyperlipidemia, unspecified; F17.210 Nicotine dependence, cigarettes, uncomplicated; I25.5 Ischemic cardiomyopathy; I08.1 Rheumatic disorders of both mitral and tricuspid valves; I25.10 Atherosclerotic heart disease of native coronary artery without angina pectoris; I25.2 Old myocardial infarction; Z79.899 Other long term (current) drug therapy; Z71.6 Tobacco abuse counseling
CPT/HCPCS: 36415; 36600; 71045; 71046; 80048; 80053; 80061; 82565; 82805; 83036; 83605; 83735; 83880; 84145; 84484; 85025; 85027; 85610; 85730; 87635; 92978; 93005; 93306; 93312; 93320; 93325; 93458; 93799; 94640; 94760; 96374; 96375; 96376; 99285